=== PATIENT | male | born 1970 | race Caucasian/White ===

== ENCOUNTER 2020-03-14 11:39 | Inpatient (IN) | payer OTHER, SELFPAY ==
[2020-03-14 11:51] VITALS: BP 127/62; PULSE 81; RESP 16; TEMP 36.6; O2SAT 98; BMI 22.3
--- NOTE | 2020-03-14 14:07 | PCM.NTREPORT ---
Nutrition Therapy Report - History Nutrition Services has been consulted to:: Manage enteral nutrition Current diet / nutrition support order:: NPO - Anthropometric Measurements Height:: 5 ft 9 in Weight:: 68.492 kg Body Mass Index (BMI):: 22.3 - Assessment Food / Nutrition-Related History:: Records from [facility] reviewed. Respiratory failure requiring tracheostomy s/p intracranial bleed. PEG placed 12/31/19. Per records, pt has been tolerating Jevity 1.5 at 65mL/hour w/ 200mL H2O flush every 4 hours. This provides 2340 calories, 99.5 g protein, 2385 mL total fluid/day. No wt hx available. CBW from [facility]- 151#. - Nutrition Diagnosis Problem / Etiology / Signs & Symptoms (PES):: Chewing/swallowing difficulty r/t tracheostomy status, dysphagia as evidenced by need for enteral nutrition support via PEG. Evidence of Malnutrition Exists:: No - Nutrition Intervention Nutrition Prescription:: [id number] calories, 82-92 g protein/day - Food / Nutrient Delivery Interventions Summary of nutrition intervention:: Asked to switch continuous feeds to bolus feeds. See below. Nutrition support ordered as / adjusted to:: For bolus feeds: Jevity 1.5, 300mL bolus 5x/day. Continue 200mL flush 6x day (w/ each bolus + 1 additional flush). As ordered, will provide 2250 calories, 95.7 g protein, and 2340mL total fluid/day. Would start w/ 150mL bolus and increase by 50mL each bolus as tolerated until 300mL boluses are achieved. - MNT Monitoring Further MNT monitoring and evaluation required?: Yes MNT Follow-up in:: 3-5 days
[2020-03-14 14:12] VITALS: BMI 22.3
[2020-03-14] MEDS: Glycerin/Hypromellose/PEG400 15 ml Bottle 1 DRP LEFT EYE ×2 (14:17→17:11)
[2020-03-14 14:30] VITALS: O2SAT 99
[2020-03-14] MEDS: Jevity 1.5. 1,000 ML Bottle 300 ML GT ×2 (17:10→22:33)
[2020-03-14 18:40] VITALS: O2SAT 94
[2020-03-14 22:00] VITALS: BP 105/67; PULSE 62; RESP 18; TEMP 36.6; O2SAT 94; O2SAT 97
[2020-03-14] MEDS: cloNIDine HCl 0.1 MG Tablet 0.2 MG GT (22:32)
[2020-03-14] MEDS: levETIRAcetam Oral Solution 500 MG/5 ML GT (22:33)
[2020-03-15] MEDS: Enoxaparin 30 MG/0.3 ML Syringe SC (05:45)
[2020-03-15] MEDS: Glycerin/Hypromellose/PEG400 15 ml Bottle 1 DRP LEFT EYE ×5 (05:45→21:57)
[2020-03-15 06:05] VITALS: O2SAT 90
[2020-03-15 06:51] LABS: Absolute Lymphocyte Count 1.27 X10^3/uL (0.83-4.51); Absolute Neutrophil Count 6.3 X10^3/uL (2.0-7.7); Basophil# 0.03 X10^3/uL; Basophil% 0.4 % (0-1); Eosinophil# 0.11 X10^3/uL; Eosinophils% 1.3 % (0-5); Hemoglobin 13.6 g/dL (13.0-16.5); Lymphocyte # 1.27 X10^3/ul (4.0); Lymphocyte % 15.3 % (19-41); Mean Corp Hgb Conc 33.2 g/dL (32-36); Mean Corpuscular Hgb 29.2 pg (27.0-32.0); Mean Platelet Vol. 9.8 fl (6.2-12.0); Monocyte# 0.58 X10^3/uL; NRBC Flagged by Analyzer 0 % (0-5); Neutrophil # 6.28 X10^3/uL (2.7-7.7); Neutrophil % 75.8 % (47-70); Platelet Count 216 K/mm3 (150-450); RBC Distribution Width CV 14.1 % (11.6-14.6); RBC Distribution Width SD 45.1 fl (35.1-43.9); Red Blood Count 4.66 M/mm3 (4.6-6.2); White Blood Count 8.3 K/mm3 (4.4-11.0)
[2020-03-15 07:22] LABS: ALB/GLOB Ratio 0.8 RATIO (0.9-2.4); AST(SGOT) 18 U/L (15-37); Alanine Aminotransfer ALT/SGPT 38 U/L (16-61); Albumin, Serum 3.1 g/dL (3.2-5.0); Alkaline Phosphatase 107 U/L (45-117); Anion Gap 6 (5-15); BUN 19 mg/dL (7-18); BUN/Creat Ratio 27.9 RATIO (10-20); Calcium,Total 8.9 mg/dL (8.5-10.1); Chloride 104 mmol/L (98-107); Creatinine, Serum 0.68 mg/dL (0.70-1.30); EST Glomerular Filtration Rate 130 mL/min (>60); Est Glom Filt Rate - Afr Amer 157 mL/min (>60); Estimated Creatinine Clearance 124.51 ml/min; Globulin 3.8 g/dL (2.2-4.2); Glucose 83 mg/dL (74-106); Magnesium 2.1 mg/dL (1.6-2.6); Phosphorus 4.1 mg/dL (2.5-4.9); Potassium 3.8 mmol/L (3.5-5.1); Protein, Total 6.9 g/dL (6.4-8.2); Sodium Level 138 mmol/L (136-145)
[2020-03-15] MEDS: Jevity 1.5. 1,000 ML Bottle 300 ML GT ×5 (07:36→21:55)
--- NOTE | 2020-03-15 08:52 | HP.PCM_ITS ---
Problem List (1) TBI (traumatic brain injury) Status: Acute Qualifiers: Encounter type: subsequent encounter Loss of consciousness presence/duration: with LOC of unspecified duration Qualified Code(s): S06.9X9D - Unspecified intracranial injury with loss of consciousness of unspecified duration, subsequent encounter Comment: Occurred on 12/31/2019. He had a witnessed fall while intoxicated and struck the back of the head. He had LOC. He was taken to [facility] with declining mental status and CTH showed subdural hematoma/subarachnoid hemorrhage/midline shift/cerebral edema. He was taken to surgery for a left craniectomy with evacuation of the subdural hematoma. (2) Hx of tracheostomy Status: Chronic Comment: 01/04/2020 (3) S/P percutaneous endoscopic gastrostomy (PEG) tube placement Status: Chronic Comment: 01/04/2020 (4) History of intracranial hemorrhage Status: Acute Comment: 12/31/19 due to a fall while intoxicated. Subarachnoid hemorrhage/subdural hematoma/left temporal intraparenchymal hemorrhage. 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 The patient is a 49 year old M with a hx of chronic ETOH use disorder and chronic back pain (per his ) who had a witnessed fall on 12/31/19 while intoxicated striking the back of his head and losing consciousness. He was taken to an [facility] where a CTB showed SAH/SDH/Left intraparenchymal cerebral hemorrhage with midline shift. He underwent a craniectomy to evacuate the SDH. On 01/04/20 he had a PEG and tracheostomy. He required high doses of multiple sedatives to control behavior. Eventually he was transferred to an LTAC ([facility]). He was weaned off all sedatives. According to recent notes from [facility] he is alert but follows no commands. He is tolerating a PMSV for only 12 minutes. He is tolerating continuous TF without residuals. He was transferred to [facility] acute rehab on 03/14/20 for 3 hours of therapy daily to restore him as near as possible to his previous baseline. He was following no commands at [facility] prior to being discharged to [facility]. He is maintaining appropriate oxygen saturation on a 21% FiO2. SARS-CoV-2 rapid antigen was negative on 03/13/2020. On 03/12/2020 he tolerated 12 minutes with a [place] valve. All paperwork sent to us from [facility] was reviewed. [facility] spoke with the and told her that Scot drinks heavily and mostly at a bar. He generally calls one of the kids to come get him from the bar or he walks home. He has apparently applied for disability 2 times for chronic back pain and has been denied. He has 2 scars on either side of the LS spine from surgery in the past. He has had multiple fractures and back surgery in the past? I will need to speak with his personally when she is available. 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 All lab from today was personally reviewed. The CBC is unremarkable. CMP shows normal LFTs, normal phosphorus, normal magnesium, normal sodium and potassium. BUN is elevated at 19 and the creatinine is 0.68. 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 Psychiatric History: - - unknown....will need to speak with his . Lives: Spouse/ Significant Other Smoking Status: Never smoker Tobacco Use: Non-smoker Alcohol: Heavy Drugs: - - unknown - *Family History Maternal History Items: - - unknown.......pt is unable to give me hx due to severe TBI. Will discuss with his . Review of Systems Unable to obtain accurate/complete ROS d/t: severe TBI and he is not able to answer my questions at this time. VTE Information - Inpt Only VTE Present on Admission: No VTE Mechan Device Prophylaxis: Knee High ARIANNA Hose VTE Pharm Prophylaxis ordered?: Yes Patient Problems: Active and Suspected Problems TBI (traumatic brain injury) (Acute) Occurred on 12/31/2019. He had a witnessed fall while intoxicated and struck the back of the head. He had LOC. He was taken to [facility] with declining mental status and CTH showed subdural hematoma/subarachnoid hemorrhage/midline shift/cerebral edema. He was taken to surgery for a left craniectomy with evacuation of the subdural hematoma. History of intracranial hemorrhage (Acute) 12/31/19 due to a fall while intoxicated. Subarachnoid hemorrhage/subdural hematoma/left temporal intraparenchymal hemorrhage. History of craniotomy (Acute) 12/31/19 Cognitive dysfunction, acquired (Acute) due to TBI sustained in a fall while intoxicated with intracerebral bleeding requiring craniectomy Dysphagia (Acute) PEG was placed Encephalopathy acute (Acute) due to TBI Subdural hematoma (Acute) Subarachnoid hemorrhage (Acute) - Physical Exam Vitals/I&O's: Vital Signs Temp Pulse Resp BP Pulse Ox 97.8 F 62 18 105/67 90 03/14/20 22:00 03/14/20 22:00 03/14/20 22:00 03/14/20 22:00 03/15/20 06:05 Oxygen Delivery Method Trach Collar Weight: 150 lb 15.984 oz Body Mass Index (BMI) 22.3 Intake and Output for Last 24 Hours 03/13/20 03/14/20 03/15/20 23:59 23:59 23:59 Intake Total 750 / 750 Output Total 500 / 500 Balance 250 / 250 General: Alert, - - He was able to squeeze my hand with his left hand when I commanded him to. I asked him to squeeze my hand if he had back pain and he squeezed my hand. He squeezed again when I asked about leg pain. When I asked if he was short of breath he did not squeeze my hand. He was able to smile at me when HEENT: - - The left eye is blind and opaque. He will look at me with the right and will follow me around with the R eye. Piece of bone Left skull not yet replaced and he wears a helmet. Oral: - - he will not open his mouth. He is having some small amount of drooling. Neck: No JVD, No Nodes, Trachea Midline, - - weak neck muscles and when you extend the neck he winces. The trapezius muscles are very tight BL The nscalp has flakey seborrheic dermatitis Lungs: Clear to auscultation, No rhonchi, No wheeze, No rales, Diminished - in the bases. Cardiovascular: Regular rate, Regular Rhythm, Normal S1, Normal S2, No murmurs, No rub noted, No Gallop Abdomen: Bowel Sounds Present, Soft, Non-Distended, - - no guarding with palpation. Extremities: No clubbing, No cyanosis, No edema, Peripheral Pulses Normal, - - There is marked muscle atrophy of the RUE and the RLE. Skin: No rashes, Incision - he has an old healed incision beneath the R eyebrow.......may be from when he has shingles as a child, - - the scalp incision is intact with no purulent DC and no significant an-incisional eryt jamshid. There is a pad over the sacruum.....will have nursing help me to remove and examine the area. The documantation by nursing sounds like a stage 1 decub. He has 2 old scars on either side of the Lumbar spin Musculoskeletal: Muscle Wasting - RUE and RLE He is R sided.......he indicated this to us when asked by shrugging the R shoulder., Tenderness - of the BL trapezius muscles. Neurological: - - Motor strength on the R is 3/5 for the leg and 1/5 for the RUE. R eye is chronically blind. He makes eye contact and he smiles. Psych/Mental Status: Flat Affect Laboratory Results 03/15/20 06:30: WBC 8.3, RBC 4.66, Hgb 13.6, Hct 41.0, MCV 88.0, MCH 29.2, MCHC 33.2, RDW Std Deviation 45.1 H, RDW Coeff of Neha 14.1, Plt Count 216, MPV 9.8, Immature Gran % (Auto) 0.200, Neut % (Auto) 75.8 H, Lymph % (Auto) 15.3 L, Rusk % (Auto) 7.0, Eos % (Auto) 1.3, Baso % (Auto) 0.4, Absolute Neuts (auto) 6.3, Absolute Lymphs (auto) 1.27, Nucleated RBC % 0 03/15/20 06:30: Sodium 138, Potassium 3.8, Chloride 104, Carbon Dioxide 28.0, Anion Gap 6, BUN 19 H, Creatinine 0.68 L, Estim Creat Clear Calc 124.51, Est GFR (MDRD) Af Amer 157, Est GFR (MDRD) Non-Af 130, BUN/Creatinine Ratio 27.9 H, Glucose 83, Calcium 8.9, Phosphorus 4.1, Magnesium 2.1, Total Bilirubin 0.60, AST 18, ALT 38, Alkaline Phosphatase 107, Total Protein 6.9, Albumin 3.1 L, Globulin 3.8, Albumin/Globulin Ratio 0.8 L Current Medications Acetaminophen (Acetaminophen 650 Mg/20 Ml Udc) 650 mg GT Q6H PRN PRN PRN Reason: Pain 1-10 or Fever Bisacodyl (Bisacodyl 10 Mg Suppository) 10 mg RECTAL .PRN X 1 PRN PRN Reason: Constipation Clonidine (Clonidine Hcl 0.1 Mg Tablet) 0.2 mg GT BID [facility] Last Admin: 03/14/20 22:32 Dose: 0.2 mg Documented by: Enoxaparin Sodium (Enoxaparin 30 Mg/0.3 Ml Syringe) 30 mg SC DAILY@0600 [facility] Last Admin: 03/15/20 05:45 Dose: 30 mg Documented by: Enteral Nutritional Formula (Jevity 1.5. 1,000 Ml Bottle) 300 ml GT 5X/DAY [facility] Last Admin: 03/15/20 07:36 Dose: 200 ml Documented by: Levetiracetam (Levetiracetam Oral Solution 500 Mg/5 Ml) 500 mg GT BID [facility] Last Admin: 03/14/20 22:33 Dose: 500 mg Documented by: Magnesium Hydroxide (Magnesium Hydroxide 30 Ml Udc) 30 ml PO .PRN X 1 PRN PRN Reason: Constipation Polyethylene Glycol (Polyethylene Glycol 3350 17 Gm Packet) 17 gm PO DAILY [facility] Promethazine HCl (Promethazine 25 Mg Tablet) 12.5 mg PO Q6H PRN PRN PRN Reason: NAUSEA/VOMITING Assessment/Plan All Active Problems TBI (traumatic brain injury) (Acute) History of intracranial hemorrhage (Acute) History of craniotomy (Acute) Cognitive dysfunction, acquired (Acute) Dysphagia (Acute) Encephalopathy acute (Acute) Subdural hematoma (Acute) Subarachnoid hemorrhage (Acute) Impressions 1. Severe debility due to severe traumatic brain injury which resulted from a witnessed fall while intoxicated on 12/31/2019 resulting in a subdural hematoma, subarachnoid hemorrhage and L intraparenchymal intracerebral hemorrhage with midline shift and declining mental function requiring craniectomy to evacuate the SDH. 2. Chronic alcohol use disorder.....possibly to control chronic pain per the 3. Severe dysphagia requiring PEG tube placement 4. Prolonged extubation requiring tracheostomy 5. Chronic back pain for which he has applied for disability twice and been denied. 6. severe encephalopathy due to TBI 7. HTN - on Clonidine 8. I found no documentation of seizures but.......he is on Keppra PLAN PT for gait stability OT for ADL's ST for evaluation Analgesics as needed - Acetaminophen only for now Bowel protocol Fall precautions Assess for Anxiety/Depression GI prophylaxis not indicated at this time...no hx of PUD and the HGB is normal DVT prophylaxis with enoxaparin Follow up with neurosurgery, neurology, PCP following DC from [facility] Consult the dietitian to convert to bolus tube feeds and to assess his nutritional status. soft cervical collar to hold the head up until he gets enough strength to hold it up by himself. Massage and a K pad to the neck/traps after therapy sessions Arthritis cream to the posterior neck and the traps TID Tylenol susp 1,000 mg TID per the PEG. Obtain old records from his PCP I will contact the to discuss his hx and answer any questions she may have. Will enquire whether he has ever been treated for anxiety or depression. What type of employment does he have. Why does he have chronic back pain and what type of back surgery has he had in the past and where. Any hx of other addictions besides ETOH? Inpatient E&M: [id number] Init Hosp L3
--- NOTE | 2020-03-15 08:52 | PCM.RU.PYE ---
Admission Information Status Changes from Prescreening?: No changes Identified Actual Problem List:: Skin Intergrity, Pain, ALteration in Cmfrt, Cognitve Impr/Memory Loss, Depression, Bladder Incontinence, Bowel, Incontinence, Mobility Impaired, Self Care Deficit, Ineffective Communication, BP, Hypertension, Alteration/ Air Exchange, Alteration-Leisure Activ. Potential Problem List:: DVT, Bleeding, Infection, UTI, Aspiration, Falls, Skin Integrity, Depression Risk of Complications DVT: LMWH, ARIANNA Hose Bleeding: Monitor Lab Values, Nursing to Teach Precautions for anti-coagulation therapy., Wound, if applicable, to be assessed every shift., Stroke patients assessed for lethargy or change in status. Infection: Clinical Staff to Monitor for S/S of infection:, S/S of infection include fever, redness, warmth, etc. Urinary Tract Infection: Monitor for frequency, burning, discomfort, or incontinence., Nursing will obtain urine sample for urinalysis and C&S when ordered. Aspiration: Clinical staff will monitor for coughing, drooling, congestion., Speech will evaluate swallowing and dsyphasia., Nursing will monitor patient swallowing during meals. Falls: Patient will be evaluated for Fall Precautions, Patient will be placed on Fall Precautions as indicated per protocol. Skin Breakdown: Nursing will assess skin daily using assessment tool., Nursing will place on Skin Breakdown Precautions as indicated. Pain: Clinical staff will assess patient's pain level per protocol., Medications will be given, if needed, and the pain level reassessed., Other methods: Massage, distraction, decrease stimulus, etc. used PRN. Plan of Care Patient requires physician specializing in physical medicine and rehab oversight to provide close medical supervision of rehab issues including: Pain Management, Sleep Problems, Bowel and Bladder, Medical and co-morbidity Management, DVT prophylaxis, Rehabilitation Leadership, Coordination of treatment team Patient needs Physical Therapy: For a minimum of 1 hour, At least 5 out of 7 days Patient needs Physical Therapy to improve:: Mobility, Mobility, Mobility, Strengthening, Transfers, Stretching, ROM, Endurance, Stairs, Gait, Balance Patient needs Occupational Therapy: For a minimum of 1 hour, At least 5 out of 7 days Patient needs Occupational Therapy to improve ADL's incl.: Eating, Grooming, Bathing, Dressing, Toileting, Toilet transfers, Community Reintegration, Higher functioning activities, Household tasks, Adaptive Equipment, Splinting, Other activities as determined Patient requires speech therapy: For a minimum of 1 hour, At least 5 out of 7 days Patient requires speech therapy for: Swallowing, Cognition, Language Skills, Compensatory Strategies Patient requires 24 Rehabilitation Nursing for: Pain Issues, Identifying and preventing risk factors, Monitoring and reporting current medical conditions, Assisting with ambulation, transfer, and all ADL's, Teaching patients about disease process and medications, Family teaching, Providing safe environment, Bowel and Bladder Issues, Skin integrity, Medication Management Patient needs Supervisor Chemical/ Case Management for: Discharge Planning, Arranging Home Equipment or Services, Family Interventions Patient needs Dietary and Nutrition Services for: Adequate Nutrition, Nutritional Supplements, Nutritional Education Goals Patient will remain: free from falls, or injury at time of discharge. Patient will perform bed mobility at: MOD I level of assist. Patient will complete transfers from bed to chair at: MOD I level of assist. Patient will ambulate: with standby assist, with LRD, - - 150 feet Patient will complete upper body dressing at: MOD I level of assist. Patient will complete lower body dressing at: MOD I level of assist. Patient will complete toileting at: MOD I level of assist. Patient will perform bathing at: MOD I level of assist. Patient will complete grooming at: MOD I level of assist. Patient will complete home management skills at: MOD I level of assist. Patient will achieve: - - 3 steps with 1 handrail and min assist Patient will have pain level of: of 3 or less Patient's skin will: remain intact, free from infection. Patient will receive: adequate nutrition. Discharge Planning Pt Prognosis for Sig. Practical Improv. w/in Reasonable Time: Fair Estimated Length of stay (days): 28 Anticipated D/C Destination: TBD Was Preadmission Assessment Accurate?: No
[2020-03-15 09:01] VITALS: BP 115/68; PULSE 73; RESP 16; TEMP 36.6; O2SAT 96
[2020-03-15] MEDS: cloNIDine HCl 0.1 MG Tablet 0.2 MG GT ×2 (09:53→21:55)
[2020-03-15] MEDS: levETIRAcetam Oral Solution 500 MG/5 ML GT ×2 (09:54→21:56)
[2020-03-15] MEDS: Acetaminophen 650 MG/20 ML UDC 1000 MG GT ×2 (15:00→21:56)
[2020-03-15 21:55] VITALS: BP 114/71; PULSE 73; RESP 18; TEMP 36.6; O2SAT 97
[2020-03-15] MEDS: Arthritis Pain Compound 60 CLICK TUBE TOPICAL (21:55)
[2020-03-15] MEDS: Menthol/Lanolin/Calamine/Znox 113 GM Tube 1 APPLIC TOPICAL (21:55)
[2020-03-15] MEDS: Nystatin Powder 15gm Bottle 1 APPLIC TOPICAL (21:56)
--- NOTE | 2020-03-15 22:39 | NURSING ---
pt suction thru trach with thick yellow and foul smelling
[2020-03-16] MEDS: Jevity 1.5. 1,000 ML Bottle 300 ML GT ×5 (04:42→23:49)
[2020-03-16] MEDS: Arthritis Pain Compound 60 CLICK TUBE TOPICAL ×3 (04:43→23:44)
[2020-03-16] MEDS: Enoxaparin 30 MG/0.3 ML Syringe SC (04:43)
[2020-03-16] MEDS: Glycerin/Hypromellose/PEG400 15 ml Bottle 1 DRP LEFT EYE ×4 (04:43→23:50)
[2020-03-16] MEDS: Acetaminophen 650 MG/20 ML UDC 1000 MG GT ×3 (04:44→23:45)
[2020-03-16] MEDS: cloNIDine HCl 0.1 MG Tablet 0.2 MG GT ×2 (08:29→23:44)
[2020-03-16] MEDS: levETIRAcetam Oral Solution 500 MG/5 ML GT ×2 (08:29→23:44)
[2020-03-16] MEDS: Nystatin Powder 15gm Bottle 1 APPLIC TOPICAL ×2 (08:30→23:43)
[2020-03-16] MEDS: Menthol/Lanolin/Calamine/Znox 113 GM Tube 1 APPLIC TOPICAL ×2 (08:39→23:44)
[2020-03-16 09:18] VITALS: BP 111/72; PULSE 76; RESP 19; TEMP 36.8; O2SAT 92
--- NOTE | 2020-03-16 09:52 | PN_ITS ---
Progress Note Afebrile Heart rate and blood pressure are within normal limits. Pulse ox is 92% on an FiO2 of 28% today. Nursing reports that he has thick secr etions from the trach with a foul odor. The RT noted last night that the trach secretions were a creamy yellow and there was a large amount. Lungs were CTA yesterday but, there were diminished BS's in the bases. He is incontinent of urine Less responsive today. I saw him in the therapy room and OT is working with him to stretch neck and work out the trapezius muscles. He is less interactive today. He has his eyes closed. Appears relaxed. He is able to help maintain posture when sitting up the L eye is reactive to light Will not open his mouth, not following commands today The lungs have a few coarse rhonchi with no crackles and no wheezes HRRR, no gallop and no MM abd - soft, NT, normal BS's no peripheral edema no rashes and no skin breakdown. Impressions 1. debility due to severe TBI 2. possible PNA with fould smelling secretions from trach 3. hx of Alcohol use disorder 4. suspected depression sputum culture and GM stain Check an MRSA PCR on the sputum pCXR now STROKE Vital Signs/Narrative: Vital Signs Temp Pulse Resp BP Pulse Ox 03/16/20 09:18 98.3 F 76 19 H 111/72 92 Inpatient E&M: [id number] Subs Hosp L2
[2020-03-16 10:00] VITALS: PULSE 76; RESP 18; O2SAT 92
--- NOTE | 2020-03-16 14:00 | RAD_ITS ---
STUDY: X-RAY CHEST REASON FOR EXAM: Male, 49 years old. Hypoxemia TECHNIQUE: Frontal view COMPARISON: None. FINDINGS: Tracheostomy tube is in place. The lungs are not fully expanded. Mild left basilar atelectasis. Normal size heart. Normal mediastinum and nohemy. Normal visualized pulmonary arteries. Normal visualized aortic arch and descending thoracic aorta. Normal visualized thoracic spine. There is a round well-defined lucent 1 cm lesion in the proximal humerus. There is no demonstrated abnormality of the visualized soft tissue structures of the upper abdomen. RAD/Chest 1 View (Portable) IMPRESSION: Mild left basilar atelectasis. Possible lucent lesion within the proximal humerus. Electronically Signed: Antoine Mullins DO at 16:54 EST Tel [phone], Service support ,
[2020-03-16 17:23] VITALS: O2SAT 92
[2020-03-16 19:00] VITALS: O2SAT 91
[2020-03-16 19:28] VITALS: BP 105/65; PULSE 70; RESP 16; TEMP 37; O2SAT 96
[2020-03-17] MEDS: Acetaminophen 650 MG/20 ML UDC 1000 MG GT ×3 (05:29→22:56)
[2020-03-17] MEDS: Enoxaparin 30 MG/0.3 ML Syringe SC (05:30)
[2020-03-17] MEDS: Jevity 1.5. 1,000 ML Bottle 300 ML GT ×5 (05:30→22:51)
[2020-03-17] MEDS: Glycerin/Hypromellose/PEG400 15 ml Bottle 1 DRP LEFT EYE ×4 (05:31→23:07)
[2020-03-17] MEDS: Arthritis Pain Compound 60 CLICK TUBE TOPICAL ×3 (05:31→22:48)
[2020-03-17 08:44] VITALS: BP 100/55; PULSE 66; RESP 16; TEMP 37; O2SAT 98
[2020-03-17] MEDS: cloNIDine HCl 0.1 MG Tablet 0.2 MG GT ×2 (11:23→22:45)
[2020-03-17] MEDS: levETIRAcetam Oral Solution 500 MG/5 ML GT ×2 (11:23→22:41)
[2020-03-17] MEDS: Menthol/Lanolin/Calamine/Znox 113 GM Tube 1 APPLIC TOPICAL ×2 (11:38→22:45)
[2020-03-17] MEDS: Nystatin Powder 15gm Bottle 1 APPLIC TOPICAL ×2 (11:38→23:07)
--- NOTE | 2020-03-17 14:00 | NURSING ---
given update on patient's condition.
[2020-03-17 19:46] VITALS: BP 113/61; PULSE 61; RESP 16; TEMP 37.1; O2SAT 98
[2020-03-17 22:00] VITALS: PULSE 66; RESP 16
[2020-03-18] MEDS: Arthritis Pain Compound 60 CLICK TUBE TOPICAL ×3 (06:22→22:32)
[2020-03-18] MEDS: Glycerin/Hypromellose/PEG400 15 ml Bottle 1 DRP LEFT EYE ×3 (06:22→18:41)
[2020-03-18] MEDS: Enoxaparin 30 MG/0.3 ML Syringe SC (06:29)
[2020-03-18] MEDS: Jevity 1.5. 1,000 ML Bottle 300 ML GT ×5 (06:30→22:38)
[2020-03-18] MEDS: Acetaminophen 650 MG/20 ML UDC 1000 MG GT ×3 (06:33→22:33)
[2020-03-18 10:00] VITALS: BP 117/65; PULSE 68; RESP 18; TEMP 37.2; O2SAT 98
[2020-03-18] MEDS: cloNIDine HCl 0.1 MG Tablet 0.2 MG GT ×2 (11:09→22:38)
[2020-03-18] MEDS: levETIRAcetam Oral Solution 500 MG/5 ML GT ×2 (11:09→22:37)
[2020-03-18] MEDS: Menthol/Lanolin/Calamine/Znox 113 GM Tube 1 APPLIC TOPICAL ×2 (11:10→22:38)
[2020-03-18] MEDS: Nystatin Powder 15gm Bottle 1 APPLIC TOPICAL ×2 (11:11→22:37)
--- NOTE | 2020-03-18 17:40 | NURSING ---
Patient continues to be alert x0. When name is spoke, no response and eyes remain closed. Total assist by staff. Not able to follow commands. Mouth care provided and trach care provided per nursing. Turned and repositioned per staff.
[2020-03-18] MEDS: Amox/Clav 400mg/5ml Susp 875 MG GT (18:40)
[2020-03-18 19:37] VITALS: BP 102/58; PULSE 78; RESP 16; TEMP 36.8; O2SAT 92
[2020-03-18 22:00] VITALS: PULSE 78; RESP 16
[2020-03-19] MEDS: Glycerin/Hypromellose/PEG400 15 ml Bottle 1 DRP LEFT EYE ×4 (01:31→17:17)
[2020-03-19] MEDS: Arthritis Pain Compound 60 CLICK TUBE TOPICAL ×3 (06:19→21:20)
[2020-03-19] MEDS: Jevity 1.5. 1,000 ML Bottle 300 ML GT ×5 (06:22→23:13)
[2020-03-19] MEDS: Enoxaparin 30 MG/0.3 ML Syringe SC (06:22)
[2020-03-19] MEDS: Acetaminophen 650 MG/20 ML UDC 1000 MG GT ×3 (06:41→21:22)
[2020-03-19 09:26] VITALS: BP 101/70; PULSE 60; RESP 18; TEMP 36.9; O2SAT 96
[2020-03-19] MEDS: Amox/Clav 400mg/5ml Susp 875 MG GT ×2 (09:55→17:17)
[2020-03-19] MEDS: Menthol/Lanolin/Calamine/Znox 113 GM Tube 1 APPLIC TOPICAL ×2 (09:56→21:25)
[2020-03-19] MEDS: cloNIDine HCl 0.1 MG Tablet 0.2 MG GT ×2 (09:56→21:21)
[2020-03-19] MEDS: Nystatin Powder 15gm Bottle 1 APPLIC TOPICAL ×2 (09:57→21:25)
[2020-03-19] MEDS: levETIRAcetam Oral Solution 500 MG/5 ML GT ×2 (09:58→21:21)
--- NOTE | 2020-03-19 10:34 | CASEMGMT ---
Social Work IDT met with patient - working but will call for update after work. Patient asleep during Team. Discussed patient's progressed in therapy. Pt is standing 2 mins modx2, modx2 for tx, on Nustep while therapist holding right leg on machine, pt unable to use right arm but pushing left side on his own. Pt sat on EOM for 25 mins CGA-min for postural control, total for ADLs. Pt did try to bridge for dressing and thread leg into pants. ST working on oral care, initiating swallows and passing mirror valve. For all disciplines, pt not opening eyes often. Pt does not appear in any pain, sleeping well. will start pt on antidepressant and is treating infection in sputum in trache, which may also be causing decrease in alertness. Explained MMO CM insurance with [employer] 03/20 and continued stay is not guaranteed. Pt's TBI was extensive and will require time to heal and see significant progress. Will ReTeam and continue to follow. Vivien Manzano, [employer]
--- NOTE | 2020-03-19 12:24 | PN_ITS ---
Patient Problems: Active and Suspected Problems TBI (traumatic brain injury) (Acute) Occurred on 12/31/2019. He had a witnessed fall while intoxicated and struck the back of the head. He had LOC. He was taken to [facility] with declining mental status and CTH showed subdural hematoma/subarachnoid hemorrhage/midline shift/cerebral edema. He was taken to surgery for a left craniectomy with evacuation of the subdural hematoma. History of intracranial hemorrhage (Acute) 12/31/19 due to a fall while intoxicated. Subarachnoid hemorrhage/subdural hematoma/left temporal intraparenchymal hemorrhage. History of craniotomy (Acute) 12/31/19 Cognitive dysfunction, acquired (Acute) due to TBI sustained in a fall while intoxicated with intracerebral bleeding requiring craniectomy Dysphagia (Acute) PEG was placed Encephalopathy acute (Acute) due to TBI Subdural hematoma (Acute) Subarachnoid hemorrhage (Acute) Subjective: Day #2 Augmentin. Loyd was seen on team rounds today. No one was available to participate by phone but the vp digital marketing social media and crm will update his later today when she is done with work. Afebrile VSS -blood pressure is still within normal limits but a little on the low side when compared to admission for the past 2 days. Maintaining appropriate oxygen saturation on a 28% FiO2 with oxygen per trach collar. He was actually 96% on room air today when checked as well. Remains n.p.o. and receives all his feedings/fluids via PEG tube. Discussed with nursing - He is not responding to nursing at all and not following any commands. He does not even open his eyes when they are speaking to him.......He has declined in participation with therapy since admission and I suspect this is due to infection. Reviewed the PT/OT/ST notes Medication list reviewed. cxr was reviewed. There is blunting of the L costophrenic angle. there appears to me as though there may be a small infiltrate in the RUL. the right hemidiaphragm is elevated. The sputum Gram stain from 03/16/2020 showed 4+ white blood cells and grew 3+ MRSA and 3+ group F strep. The MRSA is resistant to clindamycin. It is sensitive to linezolid, vancomycin and Bactrim. - Physical Exam Vitals/I&O's: Vital Signs Temp Pulse Resp BP Pulse Ox 98.4 F 60 18 101/70 96 03/19/20 09:26 03/19/20 09:26 03/19/20 09:26 03/19/20 09:26 03/19/20 09:26 Oxygen Flow Rate (L/min) 6 Oxygen Delivery Method Trach Collar Weight: 150 lb 15.984 oz Body Mass Index (BMI) 22.3 Intake and Output for Last 24 Hours 03/17/20 03/18/20 03/19/20 23:59 23:59 23:59 Intake Total 4000 / 4000 3500 / 3500 500 / 500 Balance 4000 / 4000 3500 / 3500 500 / 500 General: - - He is lying in bed and does not respond to calling his name. He would not open his eyes. When I opened his eye he did not make eye contact with me HEENT: - - The Left pupil is round and reactive to light. the incision in the Left cranium is intact and there is not an-incisional erythema and no purulent DC Oral: - - I was unable to get his mouth open. Neck: No Nuchal Rigidity, Trachea Midline Lungs: Rhonchi - diffuse anteriorly and he had just been suctioned.......he has copious amounts of creamy yellow sputum and the rhonchi may be due to transmitted sounds Cardiovascular: Regular rate, Regular Rhythm, Normal S1, Normal S2, No murmurs, No rub noted, No Gallop, - - PMI is displaced inferior and medial Abdomen: Bowel Sounds Present, Soft, Non Tender, Non-Distended, - - no purulent DC from around the PEG site Extremities: No cyanosis, No edema Skin: No rashes, No breakdown, - - He has the space boots on and a dressing over the sacrum.coccyx for protection only Musculoskeletal: Muscle Wasting - R side of the body, Leg and arm Neurological: - - not able to participate in exam today. Microbiology Past 72 Hours 03/16/20 14:00 Sputum, Tracheal Aspirate Gram Stain - Final 03/16/20 14:00 Sputum, Tracheal Aspirate Respiratory Culture - Final Meth. resistant Staph. aureus Streptococcus group F Current Medications Acetaminophen (Acetaminophen 650 Mg/20 Ml Udc) 1,000 mg GT Q8 [facility]I Last Admin: 03/19/20 06:41 Dose: 1,000 mg Documented by: Amoxicillin/Clavulanate Potassium (Amox/Clav 400mg/5ml Susp) 875 mg GT BIDCM [facility] Last Admin: 03/19/20 09:55 Dose: 875 mg Documented by: Bisacodyl (Bisacodyl 10 Mg Suppository) 10 mg RECTAL .PRN X 1 PRN PRN Reason: Constipation Calamine/Phenol (Menthol/Lanolin/Calamine/Znox 113 Gm Tube) 1 applic TOPICAL BID [facility]; Protocol Last Admin: 03/19/20 09:56 Dose: 1 applicatio Documented by: Clonidine (Clonidine Hcl 0.1 Mg Tablet) 0.2 mg GT BID [facility] Last Admin: 03/19/20 09:56 Dose: 0.2 mg Documented by: Compound Med (Arthritis Pain Compound 60 Click Tube) 3 click TOPICAL TID [facility]; Protocol Last Admin: 03/19/20 06:19 Dose: 3 click Documented by: Enoxaparin Sodium (Enoxaparin 30 Mg/0.3 Ml Syringe) 30 mg SC DAILY@0600 [facility] Last Admin: 03/19/20 06:22 Dose: 30 mg Documented by: Enteral Nutritional Formula (Jevity 1.5. 1,000 Ml Bottle) 300 ml GT 5X/DAY [facility] Last Admin: 03/19/20 09:56 Dose: 300 ml Documented by: Levetiracetam (Levetiracetam Oral Solution 500 Mg/5 Ml) 500 mg GT BID [facility] Last Admin: 03/19/20 09:58 Dose: 500 mg Documented by: Magnesium Hydroxide (Magnesium Hydroxide 30 Ml Udc) 30 ml PO .PRN X 1 PRN PRN Reason: Constipation Multi-Ingredient Cream (Mineral Oil/Petrolatum,White Jar) 1 applic TOPICAL BID PRN PRN; Protocol PRN Reason: DRY SKIN Nystatin (Nystatin Powder 15gm Bottle) 1 applic TOPICAL BID [facility]; Protocol Last Admin: 03/19/20 09:57 Dose: 1 applicatio Documented by: Polyethylene Glycol (Polyethylene Glycol 3350 17 Gm Packet) 17 gm PO DAILY [facility] Last Admin: 03/19/20 09:57 Dose: Not Given Documented by: Promethazine HCl (Promethazine 25 Mg Tablet) 12.5 mg PO Q6H PRN PRN PRN Reason: NAUSEA/VOMITING Medical Necessity - Tobacco Use Smoking Status: Never smoker Tobacco Use: Non-smoker Assessment/Plan All Active Problems TBI (traumatic brain injury) (Acute) History of intracranial hemorrhage (Acute) History of craniotomy (Acute) Cognitive dysfunction, acquired (Acute) Dysphagia (Acute) Encephalopathy acute (Acute) Subdural hematoma (Acute) Subarachnoid hemorrhage (Acute) Impressions 1. Severe debility due to severe traumatic brain injury which resulted from a witnessed fall while intoxicated on 12/31/2019 resulting in a subdural hematoma, subarachnoid hemorrhage and L intraparenchymal intracerebral hemorrhage with midline shift and declining mental function requiring craniectomy to evacuate the SDH. 2. Chronic alcohol use disorder.....possibly to control chronic pain per the 3. Severe dysphagia requiring PEG tube placement 4. Prolonged extubation requiring tracheostomy 5. Chronic back pain for which he has applied for disability twice and been denied. 6. severe encephalopathy due to TBI 7. HTN - on Clonidine 8. I found no documentation of seizures but.......he is on Keppra 9. PNA with Group F Strep and MRSA 10. suspected Depression Start Vanco consult Dr. Badillo to manage the antibiotics check a CBC with Diff, CMP and a lactic acid now Place in isolation for the MRSA. Hold therapy today since he is not responsive. Inpatient E&M: [id number] [facility] Hosp L3
[2020-03-19 13:06] LABS: Absolute Lymphocyte Count 1.05 X10^3/uL (0.83-4.51); Absolute Neutrophil Count 5.1 X10^3/uL (2.0-7.7); Basophil# 0.02 X10^3/uL; Basophil% 0.3 % (0-1); Eosinophil# 0.06 X10^3/uL; Eosinophils% 0.9 % (0-5); Hematocrit 39.7 % (40-54); Hemoglobin 12.9 g/dL (13.0-16.5); Lymphocyte # 1.05 X10^3/ul (4.0); Lymphocyte % 15.2 % (19-41); Mean Corp Hgb Conc 32.5 g/dL (32-36); Mean Corpuscular Volume 89.2 fL (80-94); Mean Platelet Vol. 10.1 fl (6.2-12.0); Monocyte# 0.67 X10^3/uL; Monocyte% 9.7 % (0-10); NRBC Flagged by Analyzer 0 % (0-5); Neutrophil # 5.11 X10^3/uL (2.7-7.7); Neutrophil % 73.8 % (47-70); Platelet Count 195 K/mm3 (150-450); RBC Distribution Width CV 13.9 % (11.6-14.6); RBC Distribution Width SD 45.3 fl (35.1-43.9); Red Blood Count 4.45 M/mm3 (4.6-6.2); White Blood Count 6.9 K/mm3 (4.4-11.0)
[2020-03-19 13:37] LABS: Anion Gap 8 (5-15); BUN 15 mg/dL (7-18); BUN/Creat Ratio 25.2 RATIO (10-20); Calcium,Total 8.5 mg/dL (8.5-10.1); Chloride 102 mmol/L (98-107); EST Glomerular Filtration Rate 152 mL/min (>60); Est Glom Filt Rate - Afr Amer 184 mL/min (>60); Estimated Creatinine Clearance 141.11 ml/min; Glucose 105 mg/dL (74-106); Potassium 4.1 mmol/L (3.5-5.1); Sodium Level 139 mmol/L (136-145)
[2020-03-19 13:38] LABS: Lactic Acid 1.6 mmol/L (0.4-1.9)
[2020-03-19] MEDS: Vancomycin IV 1,000 MG/200 ML BAG 200 MG IV (14:35)
[2020-03-19] MEDS: 0.9% Saline Lock 10 ML Syringe IV ×2 (14:38→22:58)
[2020-03-19 14:40] VITALS: O2SAT 91
[2020-03-19 14:45] VITALS: O2SAT 86
--- NOTE | 2020-03-19 14:49 | PCM.RX.CS ---
Consult Pharmacy has been consulted to manage selected antiobiotic: Vancomycin Type of Consult: New start Suspected Infection: Pneumonia Prior Doses of Antibiotics Received/Current Regimen: Received initial dose of 1gm iv x 1 on 03.19.20. Labs: Sodium 139 mmol/L (136-145) 03/19/20 12:55 Potassium 4.1 mmol/L (3.5-5.1) 03/19/20 12:55 Chloride 102 mmol/L (98-107) 03/19/20 12:55 Carbon Dioxide 29.0 mmol/L (21.0-32.0) 03/19/20 12:55 Anion Gap 8 (5-15) 03/19/20 12:55 BUN 15 mg/dL (7-18) 03/19/20 12:55 Creatinine 0.60 mg/dL (0.70-1.30) L 03/19/20 12:55 Est GFR (MDRD) Af Amer 184 mL/min (>60) 03/19/20 12:55 Est GFR (MDRD) Non-Af 152 mL/min (>60) 03/19/20 12:55 BUN/Creatinine Ratio 25.2 RATIO (10-20) H 03/19/20 12:55 Glucose 105 mg/dL (74-106) 03/19/20 12:55 Microbiology: Microbiology 03/16/20 14:00 Sputum, Tracheal Aspirate Gram Stain - Final 03/16/20 14:00 Sputum, Tracheal Aspirate Respiratory Culture - Final Meth. resistant Staph. aureus Streptococcus group F Weight used for dosin.5 kg Estimated Creatinine Clearance: 124ml/min Goal Trough: 15-20 mcg/mL Pharmacy Plan for Drug Dosing: Will begin 750mg iv q8h per protocol. Trough level ordered for 03.20.20 before 4th cumulative dose with goal of 15-20 mcg/ml. Pharmacy Service will continue to monitor and adjust dosing as required. Follow-Up Labs: Trough Vancomycin - 03.20.20 @1330 before 1400 dose
--- NOTE | 2020-03-19 16:01 | PCM.HP.ID ---
Reason for Consult: MRSA Consulted by: Dr. Banks History of Present Illness: The patient is a 49 year old M with LOC, fall, TBI, admitted to [facility], had craniectomy for bleed. Now in rehab with trach. Had some sputum, worsened mental status, started on augmentin then vanc added for sputum with MRSA. ROS unobtainable due to mental status. 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 resistant Staph. aureus Streptococcus group F Laboratory Tests Past 24 Hrs 03/19/20 03/19/20 03/19/20 12:55 12:55 12:55 WBC 6.9 RBC 4.45 L Hgb 12.9 L Hct 39.7 L MCV 89.2 MCH 29.0 MCHC 32.5 RDW Std Deviation 45.3 H RDW Coeff of Neha 13.9 Plt Count 195 MPV 10.1 Immature Gran % (Auto) 0.100 Neut % (Auto) 73.8 H Lymph % (Auto) 15.2 L Briscoe % (Auto) 9.7 Eos % (Auto) 0.9 Baso % (Auto) 0.3 Absolute Neuts (auto) 5.1 Absolute Lymphs (auto) 1.05 Nucleated RBC % 0 Sodium 139 Potassium 4.1 Chloride 102 Carbon Dioxide 29.0 Anion Gap 8 BUN 15 Creatinine 0.60 L Estim Creat Clear Calc 141.11 Est GFR (MDRD) Af Amer 184 Est GFR (MDRD) Non-Af 152 BUN/Creatinine Ratio 25.2 H Glucose 105 Lactic Acid 1.6 Calcium 8.5 - Other Studies Radiology: [] reviewed Other Studies: [] Route of nutrition/ use of supplements: [] Nutritional Intake: [] IV Site: [] Cantu Catheter: [] - Physical Exam General: Lethargic, Non-Cooperative Neck: Supple, No Nodes, - - trach Lungs: Clear to auscultation, Diminished Cardiovascular: Regular rate, Regular Rhythm Abdomen: Soft, Non Tender, Non-Distended Extremities: No edema Skin: No rashes IV Site: Peripheral Musculoskeletal: No Tenderness to Palpation of Joints or Extremities - Assessment/Plan Antibiotics: [] Assessment/Plan: [] Active and Suspected Problems TBI (traumatic brain injury) (Acute) Occurred on 12/31/2019. He had a witnessed fall while intoxicated and struck the back of the head. He had LOC. He was taken to [facility] with declining mental status and CTH showed subdural hematoma/subarachnoid hemorrhage/midline shift/cerebral edema. He was taken to surgery for a left craniectomy with evacuation of the subdural hematoma. History of intracranial hemorrhage (Acute) 12/31/19 due to a fall while intoxicated. Subarachnoid hemorrhage/subdural hematoma/left temporal intraparenchymal hemorrhage. History of craniotomy (Acute) 12/31/19 Cognitive dysfunction, acquired (Acute) due to TBI sustained in a fall while intoxicated with intracerebral bleeding requiring craniectomy Dysphagia (Acute) PEG was placed Encephalopathy acute (Acute) due to TBI Subdural hematoma (Acute) Subarachnoid hemorrhage (Acute) MRSA infection - concern for tracheitis vs pneumonia. Agree with vanc/augmentin for now. Plan on 7 days of treatment depending on clinical progress Will follow, thank you
[2020-03-19 19:35] VITALS: BP 102/58; PULSE 86; RESP 16; TEMP 36.7; O2SAT 98
[2020-03-19 21:30] VITALS: PULSE 86; RESP 16
[2020-03-20] MEDS: Glycerin/Hypromellose/PEG400 15 ml Bottle 1 DRP LEFT EYE ×5 (00:50→23:34)
[2020-03-20] MEDS: 0.9% Saline Lock 10 ML Syringe IV ×3 (01:17→14:00)
--- NOTE | 2020-03-20 04:15 | NURSING ---
Reviewed and agreer with CHEMICAL WASTE MANAGEMENT TECHNICIAN documentation and charting.
--- NOTE | 2020-03-20 04:16 | NURSING ---
Pt exhibits no signs of response when staff provide care except for slight eye opening but only occasionally. Incontinence continues and mepilex on coccyx intact. Replaced on previous shift.
[2020-03-20] MEDS: Arthritis Pain Compound 60 CLICK TUBE TOPICAL ×3 (05:08→23:34)
[2020-03-20] MEDS: Acetaminophen 650 MG/20 ML UDC 1000 MG GT ×2 (05:09→13:59)
[2020-03-20] MEDS: Enoxaparin 30 MG/0.3 ML Syringe SC (05:09)
[2020-03-20] MEDS: Jevity 1.5. 1,000 ML Bottle 300 ML GT ×5 (05:15→23:35)
[2020-03-20 05:20] VITALS: O2SAT 96
[2020-03-20 08:41] VITALS: BP 102/58; PULSE 64; RESP 18; TEMP 36.3; O2SAT 95
[2020-03-20] MEDS: Amox/Clav 400mg/5ml Susp 875 MG GT ×2 (09:43→17:30)
[2020-03-20] MEDS: levETIRAcetam Oral Solution 500 MG/5 ML GT ×2 (09:44→23:35)
[2020-03-20] MEDS: cloNIDine HCl 0.1 MG Tablet 0.2 MG GT ×2 (09:44→23:35)
[2020-03-20] MEDS: Sertraline 50 MG Tablet 25 MG PO (09:44)
[2020-03-20] MEDS: Menthol/Lanolin/Calamine/Znox 113 GM Tube 1 APPLIC TOPICAL ×2 (09:46→23:34)
[2020-03-20] MEDS: Nystatin Powder 15gm Bottle 1 APPLIC TOPICAL ×2 (09:46→23:36)
[2020-03-20 13:57] LABS: Vancomycin, Trough Level 11.1 ug/mL (5.0-15.0)
--- NOTE | 2020-03-20 15:49 | PCM.RX.CS ---
Consult Pharmacy has been consulted to manage selected antiobiotic: Vancomycin Type of Consult: Follow-up Suspected Infection: Pneumonia Labs: Sodium 139 mmol/L (136-145) 03/19/20 12:55 Potassium 4.1 mmol/L (3.5-5.1) 03/19/20 12:55 Chloride 102 mmol/L (98-107) 03/19/20 12:55 Carbon Dioxide 29.0 mmol/L (21.0-32.0) 03/19/20 12:55 Anion Gap 8 (5-15) 03/19/20 12:55 BUN 15 mg/dL (7-18) 03/19/20 12:55 Creatinine 0.60 mg/dL (0.70-1.30) L 03/19/20 12:55 Est GFR (MDRD) Af Amer 184 mL/min (>60) 03/19/20 12:55 Est GFR (MDRD) Non-Af 152 mL/min (>60) 03/19/20 12:55 BUN/Creatinine Ratio 25.2 RATIO (10-20) H 03/19/20 12:55 Glucose 105 mg/dL (74-106) 03/19/20 12:55 Vancomycin Trough 11.1 ug/mL (5.0-15.0) 03/20/20 13:20 Microbiology: Microbiology 03/16/20 14:00 Sputum, Tracheal Aspirate Gram Stain - Final 03/16/20 14:00 Sputum, Tracheal Aspirate Respiratory Culture - Final Meth. resistant Staph. aureus Streptococcus group F Goal Trough: 15-20 mcg/mL Pharmacy Plan for Drug Dosing: VANCOMYCIN LEVEL RECEIVED Current Vancomycin Dose: 750mg IV Q8hr Number of Doses Received: 4 (3 prior to trough) Vancomycin Level: 11.1 Hours Since Last Dose: 8hr Renal Function: 0.6 Renal Function Trend: stable Lab/Micro: SCx = MRSA Vancomycin Plan/Comments: Trough drawn 8hrs from last dose administered which resulted in a value of 11.1 (goal 15-20). Will increase dose to 1000mg IV Q8hr and draw a trough prior to 4th dose of new regimen. Will start 1000mg IV Q8hr 03/20/20 @2200, as pt already had 1400 dose today. Pending Level: 03/21/20 @2130 Pharmacy Service will continue to monitor and adjust dosing as required.
[2020-03-20 19:19] VITALS: BP 110/71; PULSE 62; RESP 16; TEMP 36.8; O2SAT 97
[2020-03-20] MEDS: Vancomycin IV 1,000 MG/200 ML BAG 200 MG IV (21:52)
[2020-03-21] MEDS: Acetaminophen 650 MG/20 ML UDC 1000 MG GT ×4 (00:29→23:46)
[2020-03-21] MEDS: 0.9% Saline Lock 10 ML Syringe IV ×4 (01:18→14:23)
[2020-03-21] MEDS: Enoxaparin 30 MG/0.3 ML Syringe SC (05:28)
[2020-03-21] MEDS: Arthritis Pain Compound 60 CLICK TUBE TOPICAL ×3 (05:28→21:18)
[2020-03-21] MEDS: Glycerin/Hypromellose/PEG400 15 ml Bottle 1 DRP LEFT EYE ×4 (05:28→21:19)
[2020-03-21 05:30] VITALS: O2SAT 96
[2020-03-21] MEDS: Jevity 1.5. 1,000 ML Bottle 300 ML GT ×5 (05:30→21:18)
[2020-03-21] MEDS: Vancomycin IV 1,000 MG/200 ML BAG 200 MG IV ×3 (05:46→21:58)
[2020-03-21 07:03] VITALS: O2SAT 95
[2020-03-21 07:30] VITALS: BP 133/77; PULSE 54; RESP 16; TEMP 36.7; O2SAT 95
[2020-03-21] MEDS: cloNIDine HCl 0.1 MG Tablet 0.2 MG GT ×2 (09:05→21:18)
[2020-03-21] MEDS: Sertraline 50 MG Tablet 25 MG PO (09:06)
[2020-03-21] MEDS: levETIRAcetam Oral Solution 500 MG/5 ML GT ×2 (09:06→21:17)
[2020-03-21] MEDS: Polyethylene Glycol 3350 17 GM PACKET PO (09:07)
[2020-03-21] MEDS: Menthol/Lanolin/Calamine/Znox 113 GM Tube 1 APPLIC TOPICAL ×2 (09:10→21:19)
[2020-03-21] MEDS: Nystatin Powder 15gm Bottle 1 APPLIC TOPICAL ×2 (09:11→21:19)
[2020-03-21] MEDS: Amox/Clav 400mg/5ml Susp 875 MG GT ×2 (09:21→17:25)
[2020-03-21] MEDS: Modafinil 200 MG Tablet PO (09:31)
[2020-03-21] MEDS: Amantadine 100 MG Capsule PO ×2 (09:31→21:17)
--- NOTE | 2020-03-21 12:09 | PCM.PN.BLA ---
Progress Note Afebrile VSS Maintaining appropriate oxygen saturation on a trach collar with a 30% FIO2 Tolerating tube feed with no residuals No constipation, no diarrhea Discussed with nursing - no problems that need addressed Reviewed the PT/OT notes Medication list reviewed. lying in bed - unresponsive. Does not open eyes to calling his name or shaking him. Lungs - still with a large amount of tracheal secretions, creamy yellow HRRR, no tachycardia, no gallop abd - flat, soft, no guarding with palpation no peripheral edema withdraws to a painful stimulus to the toenail He is holding the RUE in flexion and resists attempt to straighten it out. Posturing? He is not doing this with the LUE. Pupil on the right is reactive to light......I have to force his eye open....he resists me Impressions 1. severe TBI 2. seizure prophylaxis with Keppra 3. PNA/tracheitis due to Strep group F and MRSA 4. Blind Left eye 5. disturbed sleep/wake cycle? Less responsive than at admission - WHY? Start Provigil to promote wakefulness and Amantadine BID for TBI Continue the antibiotics Has not been able to do 3 hours of therapy the past few days due to acute PNA with decline in strength and awareness. Inpatient E&M: [id number] Subs Hosp L2
[2020-03-21 19:32] VITALS: BP 129/63; PULSE 64; RESP 18; TEMP 36.8; O2SAT 97
--- NOTE | 2020-03-21 23:17 | PCM.RX.CS ---
Consult Pharmacy has been consulted to manage selected antiobiotic: Vancomycin Type of Consult: Follow-up Labs: Sodium 139 mmol/L (136-145) 03/19/20 12:55 Potassium 4.1 mmol/L (3.5-5.1) 03/19/20 12:55 Chloride 102 mmol/L (98-107) 03/19/20 12:55 Carbon Dioxide 29.0 mmol/L (21.0-32.0) 03/19/20 12:55 Anion Gap 8 (5-15) 03/19/20 12:55 BUN 15 mg/dL (7-18) 03/19/20 12:55 Creatinine 0.60 mg/dL (0.70-1.30) L 03/19/20 12:55 Est GFR (MDRD) Af Amer 184 mL/min (>60) 03/19/20 12:55 Est GFR (MDRD) Non-Af 152 mL/min (>60) 03/19/20 12:55 BUN/Creatinine Ratio 25.2 RATIO (10-20) H 03/19/20 12:55 Glucose 105 mg/dL (74-106) 03/19/20 12:55 Vancomycin Trough 17.0 ug/mL (5.0-15.0) H 03/21/20 21:40 Microbiology: Microbiology 03/16/20 14:00 Sputum, Tracheal Aspirate Gram Stain - Final 03/16/20 14:00 Sputum, Tracheal Aspirate Respiratory Culture - Final Meth. resistant Staph. aureus Streptococcus group F Goal Trough: 15-20 mcg/mL Pharmacy Plan for Drug Dosing: Pharmacy Service will continue to monitor and adjust dosing as required. TROUGH 17 NO CHANGES REDRAW TROUGH ON 03/25 @ 2129 Follow-Up Labs: Trough Vancomycin Labs to be done on [date and time ordered]: 03/25 @ 2129
[2020-03-22 05:35] VITALS: O2SAT 96
[2020-03-22] MEDS: Acetaminophen 650 MG/20 ML UDC 1000 MG GT ×3 (05:47→22:54)
[2020-03-22] MEDS: Vancomycin IV 1,000 MG/200 ML BAG 200 MG IV ×3 (05:47→22:48)
[2020-03-22] MEDS: Jevity 1.5. 1,000 ML Bottle 300 ML GT ×5 (05:48→22:37)
[2020-03-22] MEDS: Enoxaparin 30 MG/0.3 ML Syringe SC (05:48)
[2020-03-22] MEDS: Arthritis Pain Compound 60 CLICK TUBE TOPICAL ×3 (05:49→22:46)
[2020-03-22] MEDS: Glycerin/Hypromellose/PEG400 15 ml Bottle 1 DRP LEFT EYE ×4 (05:49→22:34)
[2020-03-22] MEDS: Modafinil 200 MG Tablet PO (05:52)
[2020-03-22 07:30] VITALS: BP 132/77; PULSE 56; RESP 16; TEMP 36.4; O2SAT 97
[2020-03-22 10:13] VITALS: O2SAT 95
[2020-03-22] MEDS: Sertraline 50 MG Tablet 25 MG PO (10:59)
[2020-03-22] MEDS: Amantadine 100 MG Capsule PO ×2 (10:59→22:37)
[2020-03-22] MEDS: cloNIDine HCl 0.1 MG Tablet 0.2 MG GT ×2 (10:59→22:37)
[2020-03-22] MEDS: levETIRAcetam Oral Solution 500 MG/5 ML GT (11:00)
[2020-03-22] MEDS: Menthol/Lanolin/Calamine/Znox 113 GM Tube 1 APPLIC TOPICAL ×2 (11:01→22:46)
[2020-03-22] MEDS: Amox/Clav 400mg/5ml Susp 875 MG GT ×2 (11:01→18:24)
[2020-03-22] MEDS: Nystatin Powder 15gm Bottle 1 APPLIC TOPICAL ×2 (11:02→22:46)
--- NOTE | 2020-03-22 12:13 | PCM.PN.BLA ---
Progress Note Day #5/7 vancomycin and Augmentin Afebrile since admission Vital signs are stable Maintaining appropriate oxygen saturation on a 30% FiO2 via trach collar No residuals on the tube feed PT/OT notes reviewed. He stood for 10 minutes with assist of 2 and the Svetlana lift today. He did open his eye briefly upon standing but then closed it again. He had increased tone vs guarding in the legs today.....could not get the same ROM he had yesterday. He was sitting in the recliner when I entered the room. He has increased tone in the R arm and holds it in a flexed position....I can passively stretch it out. Also has tightness in the legs per PT. He has kicked the boot off his Left leg a few times. He withdraws to a painful stimulus. He would not respond to me today when I called his name or shook his shoulder. He is chewing when stimulated and he has crescendo/decrescendo breathing pattern. He is still coughing, not as much. Lungs - no rales or wheezes today HRRR Abd is soft with no guarding with palpation. BS's are normal. The PEG site and no erythema and no DC around it. Babinski's at upgoing BL. Impressions 1. debility due to TBI 2. increased tone in the RUE and the legs - etiology? is he resisting movement due to pain? Central pain S.? increased muscle tone due to medication? seizure? I am going to hold the Provigil and see if the increase in tone resolves. 3. severe encephalopathy - he has declined since admission to rehab. Less responsive. Was able to do the Nu-step with assist at admission......now not responding. I though it may be related to PNA/tracheitis but, he is no more responsive after 5 days of antibiotics. I question whether he could be having seizures, non-convulsive? I am going to order a EEG. CBC with diff and a BMP in the AM If no seizures and the increased tone does not resolve with DC of the Provigil will give a trial of Gabapentin for possible central pain S. Inpatient E&M: [id number] Subs Hosp L2
--- NOTE | 2020-03-22 12:42 | TELEMED_ITS ---
[facility] Telemed has confirmed receipt of a request for visit. This document confirms receipt of the order initiating the consult. To find the results of the consultation, please view the patient's reports for the scanned Telemed Consult.
[2020-03-22] MEDS: 0.9% Saline Lock 10 ML Syringe IV ×2 (13:41→22:45)
[2020-03-22] MEDS: LORazepam 2 MG/ML Syringe 1 MG IV (15:53)
[2020-03-22 19:32] VITALS: BP 118/64; PULSE 60; RESP 16; TEMP 37.2; O2SAT 97
[2020-03-22 22:00] VITALS: PULSE 62; RESP 16
[2020-03-22] MEDS: levETIRAcetam Oral Solution 500 MG/5 ML 1000 MG GT (22:37)
[2020-03-23] MEDS: Vancomycin IV 1,000 MG/200 ML BAG 200 MG IV (04:43)
[2020-03-23] MEDS: 0.9% Saline Lock 10 ML Syringe IV (04:45)
[2020-03-23] MEDS: Enoxaparin 30 MG/0.3 ML Syringe SC (05:21)
[2020-03-23] MEDS: Acetaminophen 650 MG/20 ML UDC 1000 MG GT (05:21)
[2020-03-23] MEDS: Glycerin/Hypromellose/PEG400 15 ml Bottle 1 DRP LEFT EYE (05:21)
[2020-03-23] MEDS: Arthritis Pain Compound 60 CLICK TUBE TOPICAL (05:21)
[2020-03-23] MEDS: Jevity 1.5. 1,000 ML Bottle 300 ML GT ×2 (05:21→10:16)
[2020-03-23 06:06] LABS: Absolute Neutrophil Count 4.2 X10^3/uL (2.0-7.7); Basophil# 0.02 X10^3/uL; Basophil% 0.3 % (0-1); Eosinophil# 0.08 X10^3/uL; Eosinophils% 1.4 % (0-5); Hematocrit 38.5 % (40-54); Hemoglobin 12.7 g/dL (13.0-16.5); Lymphocyte % 20.7 % (19-41); Mean Corpuscular Hgb 29.1 pg (27.0-32.0); Mean Corpuscular Volume 88.3 fL (80-94); Mean Platelet Vol. 10.2 fl (6.2-12.0); Monocyte# 0.29 X10^3/uL; NRBC Flagged by Analyzer 0 % (0-5); Neutrophil # 4.18 X10^3/uL (2.7-7.7); Neutrophil % 71.9 % (47-70); Platelet Count 234 K/mm3 (150-450); RBC Distribution Width CV 13.8 % (11.6-14.6); RBC Distribution Width SD 44.5 fl (35.1-43.9); Red Blood Count 4.36 M/mm3 (4.6-6.2); White Blood Count 5.8 K/mm3 (4.4-11.0)
[2020-03-23 06:27] LABS: Anion Gap 7 (5-15); BUN 11 mg/dL (7-18); BUN/Creat Ratio 14.7 RATIO (10-20); Calcium,Total 8.5 mg/dL (8.5-10.1); Chloride 103 mmol/L (98-107); Creatinine, Serum 0.75 mg/dL (0.70-1.30); EST Glomerular Filtration Rate 117 mL/min (>60); Est Glom Filt Rate - Afr Amer 141 mL/min (>60); Estimated Creatinine Clearance 112.88 ml/min; Glucose 147 mg/dL (74-106); Potassium 3.3 mmol/L (3.5-5.1); Sodium Level 136 mmol/L (136-145)
[2020-03-23 07:05] VITALS: BP 129/81; PULSE 68; RESP 18; TEMP 36.5; O2SAT 95
[2020-03-23 07:50] VITALS: O2SAT 96
[2020-03-23] MEDS: levETIRAcetam Oral Solution 500 MG/5 ML 1000 MG GT (10:14)
[2020-03-23] MEDS: Sertraline 50 MG Tablet 25 MG PO (10:15)
[2020-03-23] MEDS: cloNIDine HCl 0.1 MG Tablet 0.2 MG GT (10:15)
[2020-03-23] MEDS: Amantadine 100 MG Capsule PO (10:15)
[2020-03-23] MEDS: Nystatin Powder 15gm Bottle 1 APPLIC TOPICAL (10:16)
[2020-03-23] MEDS: Menthol/Lanolin/Calamine/Znox 113 GM Tube 1 APPLIC TOPICAL (10:16)
[2020-03-23] MEDS: Amox/Clav 400mg/5ml Susp 875 MG GT (10:21)
--- NOTE | 2020-03-23 11:20 | CT_ITS ---
STUDY: CT BRAIN WITHOUT CONTRAST REASON FOR EXAM: Male, 49 years old. Status epilipticus, traumatic brain injury 12/2019 with left craniotomy d/t subdural, subarachdnoid and left temporal intraparenchymal hemorrhage/ RADIATION DOSAGE (If Supplied By Facility): CTDIvol = ( 44.99 ) mGy, DLP = ( 796.11 ) mGycm TECHNIQUE: Transaxial CT imaging of the brain was performed without administration of intravenous contrast material. Individualized dose optimization techniques were used for this CT. COMPARISON: Comparison is made with prior examination dated 02/15/2020. FINDINGS: Normal soft tissue structures. The patient is status post left frontal temporoparietal craniotomy. Once again, there is evidence of herniation of the left temporal parietal lobes to the level of the skull. There is evidence of encephalomalacia in the left frontal as well as left posterior parietal temporal lobes. There has been no change as compared to prior study. Normal brainstem. Normal cerebellum. There is no intracranial hemorrhage. There are no findings of an acute ischemic infarction. Normal visualized paranasal sinuses. CT/Brain/Head without Contrast IMPRESSION: Stable examination. Electronically Signed: Juarez Torres, at 12:59 EST , Service support ,
--- NOTE | 2020-03-23 11:43 | PCM.PN.BLA ---
Progress Note Afebrile VSS 95% on RA today Less secretions from the trach. Minimal cough. Secretions are thinner and more clear today. He is still unresponsive. does not arouse to calling his name or shaking him. He withdraws to a painful stimulus. Muscle tone has changed.....increased tone yesterday in the RUE and the legs.....today he is limp in all extremities. He was having decerebrate posturing in the RUE yesterday when I put pressure on the fingernail bed.......today he is withdrawing his RUE when I touch him. No chewing or sucking today. Lungs - occasional rhonchi, no crackles, not tachypneic HRRR, no gallop and no MM abd - soft, ND, no guarding with palpation, PEG site is clean with no erythema and no DC no peripheral edema. he resists me trying to open the left eye. K is 3.3 today. The remainder of the lab is unremarkable. Impressions 1. NCS with status epilepticus on EEG done yesterday afternoon. Still unresponsive after increase in the Keppra to 1,000 mg BID. 2. Severe traumatic brain injury due to a fall 3. Alcohol abuse 4. tracheitis/PNA due to Group F strep and MRSA - this is day 6 of 7 of IV Vanco and Augmentin 5. Hypokalemia - supplemented Add Vimpat and give 200 mg IV now and then 100 mg BID CTB without contrast. COVID rapid antigen. I have contacted several tertiary care centers to transfer patient to neuro ICU for continuous EEG monitoring but, No one has any available ICU beds and the hospital are full. [facility] on a [facility] list I have talked with his Molly and she is OK with transfer. STROKE Vital Signs/Narrative: Vital Signs Pulse Ox 03/23/20 07:50 96 Inpatient E&M: [id number] Subs Hosp L3
[2020-03-23 12:40] VITALS: BP 129/81; PULSE 68; RESP 18; TEMP 36.5; O2SAT 95
--- NOTE | 2020-03-23 12:54 | DS.PCM_ITS ---
Discharge Date and Diagnosis - Problem List Patient Problems: Active and Suspected Problems TBI (traumatic brain injury) (Acute) Occurred on 12/31/2019. He had a witnessed fall while intoxicated and struck the back of the head. He had LOC. He was taken to [facility] with declining mental status and CTH showed subdural hematoma/subarachnoid hemorrhage/midline shift/cerebral edema. He was taken to surgery for a left craniectomy with evacuation of the subdural hematoma. History of intracranial hemorrhage (Acute) 12/31/19 due to a fall while intoxicated. Subarachnoid hemorrhage/subdural hematoma/left temporal intraparenchymal hemorrhage. History of craniotomy (Acute) 12/31/19 Cognitive dysfunction, acquired (Acute) due to TBI sustained in a fall while intoxicated with intracerebral bleeding requiring craniectomy Dysphagia (Acute) PEG was placed Encephalopathy acute (Acute) due to TBI Subdural hematoma (Acute) Subarachnoid hemorrhage (Acute) Date of Admission: 03/14/20 Date of Discharge: 03/23/20 - Primary Discharge Diagnosis Acute Problems: Active Problems Non-convulsive status epilepticus TBI (traumatic brain injury) (Acute) Occurred on 12/31/2019. He had a witnessed fall while intoxicated and struck the back of the head. He had LOC. He was taken to [facility] with declining mental status and CTH showed subdural hematoma/subarachnoid hemorrhage/midline shift/cerebral edema. He was taken to surgery for a left craniectomy with evacuation of the subdural hematoma. History of intracranial hemorrhage (Acute) 12/31/19 due to a fall while intoxicated. Subarachnoid hemorrhage/subdural hematoma/left temporal intraparenchymal hemorrhage. History of craniotomy (Acute) 12/31/19 - the skull was not replaced to allow the brain to swell without herniating. He wears a helmet Encephalopathy/Cognitive dysfunction, acquired (Acute) due to TBI sustained in a fall while intoxicated with intracerebral bleeding requiring craniectomy Dysphagia (Acute) PEG was placed Subdural hematoma (Acute) Subarachnoid hemorrhage (Acute) Tracheitis vs PNA due to MRSA and Group F Strep. 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 Possible lucent lesion within the proximal humerus. Electronically Signed: Antoine Harpreet at 16:54 EST Tel [phone], Service support , Laboratory Last Values WBC 5.8 K/mm3 (4.4-11.0) 03/23/20 05:40 RBC 4.36 M/mm3 (4.6-6.2) L 03/23/20 05:40 Hgb 12.7 g/dL (13.0-16.5) L 03/23/20 05:40 Hct 38.5 % (40-54) L 03/23/20 05:40 MCV 88.3 fL (80-94) 03/23/20 05:40 MCH 29.1 pg (27.0-32.0) 03/23/20 05:40 MCHC 33.0 g/dL (32-36) 03/23/20 05:40 RDW Std Deviation 44.5 fl (35.1-43.9) H 03/23/20 05:40 RDW Coeff of Neha 13.8 % (11.6-14.6) 03/23/20 05:40 Plt Count 234 K/mm3 (150-450) 03/23/20 05:40 MPV 10.2 fl (6.2-12.0) 03/23/20 05:40 Immature Gran % (Auto) 0.700 % (0.0-0.9) 03/23/20 05:40 Neut % (Auto) 71.9 % (47-70) H 03/23/20 05:40 Lymph % (Auto) 20.7 % (19-41) 03/23/20 05:40 [place] % (Auto) 5.0 % (0-10) 03/23/20 05:40 Eos % (Auto) 1.4 % (0-5) 03/23/20 05:40 Baso % (Auto) 0.3 % (0-1) 03/23/20 05:40 Absolute Neuts (auto) 4.2 X10^3/uL (2.0-7.7) 03/23/20 05:40 Absolute Lymphs (auto) 1.20 X10^3/uL (0.83-4.51) 03/23/20 05:40 Nucleated RBC % 0 % (0-5) 03/23/20 05:40 Sodium 136 mmol/L (136-145) 03/23/20 05:40 Potassium 3.3 mmol/L (3.5-5.1) L 03/23/20 05:40 Chloride 103 mmol/L (98-107) 03/23/20 05:40 Carbon Dioxide 26.0 mmol/L (21.0-32.0) 03/23/20 05:40 Anion Gap 7 (5-15) 03/23/20 05:40 BUN 11 mg/dL (7-18) 03/23/20 05:40 Creatinine 0.75 mg/dL (0.70-1.30) 03/23/20 05:40 Estim Creat Clear Calc 112.88 ml/min 03/23/20 05:40 Est GFR (MDRD) Af Amer 141 mL/min (>60) 03/23/20 05:40 Est GFR (MDRD) Non-Af 117 mL/min (>60) 03/23/20 05:40 BUN/Creatinine Ratio 14.7 RATIO (10-20) 03/23/20 05:40 Glucose 147 mg/dL (74-106) H 03/23/20 05:40 Lactic Acid 1.6 mmol/L (0.4-1.9) 03/19/20 12:55 Calcium 8.5 mg/dL (8.5-10.1) 03/23/20 05:40 Phosphorus 4.1 mg/dL (2.5-4.9) 03/15/20 06:30 Magnesium 2.1 mg/dL (1.6-2.6) 03/15/20 06:30 Total Bilirubin 0.60 mg/dL (0.20-1.00) 03/15/20 06:30 AST 18 U/L (15-37) 03/15/20 06:30 ALT 38 U/L (16-61) 03/15/20 06:30 Alkaline Phosphatase 107 U/L (45-117) 03/15/20 06:30 Total Protein 6.9 g/dL (6.4-8.2) 03/15/20 06:30 Albumin 3.1 g/dL (3.2-5.0) L 03/15/20 06:30 Globulin 3.8 g/dL (2.2-4.2) 03/15/20 06:30 Albumin/Globulin Ratio 0.8 RATIO (0.9-2.4) L 03/15/20 06:30 Vancomycin Trough 17.0 ug/mL (5.0-15.0) H 03/21/20 21:40 Microbiology 03/23/20 11:35 Mucosa - Nose SARS-CoV-2 Antigen (Rapid) - Final Negative 03/16/20 14:00 Sputum, Tracheal Aspirate Gram Stain - Final 03/16/20 14:00 Sputum, Tracheal Aspirate Respiratory Culture - Final Meth. resistant Staph. aureus Streptococcus group F Dr. Rick Badillo - ID Operations: None Procedures: Electroencephalogram - 03/22/20 - interpreted by SOC Summary of Care Provided: The patient is a 49 year old M with a hx of chronic ETOH use disorder and chronic back pain (per his ) who had a witnessed fall on 12/31/19 while intoxicated striking the back of his head and losing consciousness. He was taken to [facility] where a CTB showed SAH/SDH/Left intraparenchymal cerebral hemorrhage with midline shift. He underwent a craniectomy to evacuate the SDH. On 01/04/20 he had a PEG tube inserted and a tracheostomy. He required high doses of multiple sedatives to control behavior initially and he could not be extubated. Eventually he was transferred to an LT[facility] ([facility] He was weaned off all sedatives. According to recent notes from [facility] he was alert but followed no commands. He was tolerating a PMSV for only 12 minutes. He was tolerating continuous TF without residuals. He was transferred to [facility] acute rehab on 03/14/20 for 3 hours of therapy daily to restore him as near as possible to his previous baseline. When he was evaluated by PT on 03/15/20 he was able to follow some commands and he participated in the evaluation. He was able to stand while holding onto the sink. He was placed on the Nu-Step and he moved both legs and the LUE at [facility]. When I examined him he made eye contact and smiled at when I told him my name. He was able to respond to questions by squeezing my hand with his LUE. Over the next few days he grew less responsive and he was evaluated for infection. He had copious amounts of creamy yellow sputum and had to be placed on O2 via trach collar at 30% FIO2. He ws started on Vancomycin and Augmentin. Sputum culture grew group F Streptococcus and MRSA. He was seen in consultation by Dr. Rick Badillo from infectious disease who agreed with the antibiotics and recommended 7 days of treatment. I initially suspected the decline in level of alertness was due to infection however he did not recover after a few days of antibiotics. On 03/22/20 he had increased muscle tone in the RUE (previously flaccid) and also had increased tone in the Legs. He was unresponsive and did not arouse with calling his name or shaking him. He withdrew to painful stimulus. Babinski's were upgoing BL. EEG was obtained and showed non-convulsive status epilepticus in the left frontal region with multiple focal seizures arising in the left frontal region lasting approximately 30 to 45 seconds each. There was also evidence of moderate to severe diffuse encephalopathy based on continuous slow generalized pattern. He was given 1 mg of IV Ativan and Keppra was increased to 1,000 GM BID. I discussed possible transfer with his Molly for continuous EEG monitoring and we agreed to see how he responded to the increased dose of Keppra and re-evaluate in the morning. I saw him in the morning early on 03/23/20 and he remained unresponsive. I have not witnessed any convulsive activity. The muscle tone is now flaccid in all extremities. Babinski's are still upgoing BL. He withdraws to a painful stimulus but does not respond to calling his name or shaking him. Molly is agreeable to transfer to a tertiary facility where he can have continuous EEG monitoring. I have added Vimpat. A CTB was ordered and we are awaiting the official read from radiology but per my review there is no bleeding. There is extensive encephalomalacia on the left side of the brain and the brain is swollen and protruding from the bone defect left following craniectomy when the bone fragment was not replaced. I was in contact with [facility] and they have a bed available and Dr. Escalona will be the accepting physician. Dr. Escalona recommended placing the pt on a ventilator and sedating him prior to transfer to [facility]. I discussed this with Dr. Boudreaux, the manager of pmo at [facility], and he will get Loyd on a ventilator. He currently has a #[address] The trach was done on 01/04/20 [address] [facility]. Dr. Escalona also wanted him to receive 1 GM of IV Keppra prior to transfer. This has been ordered. I left a VM for his Molly informing of her of the transfer to [facility]. I left the number of our ICU on the VM so she could call and talk to staff. I contacted radiology and they tell me there is non change on the CT scan and they will make a disc of the CT to send with the pt to [facility]. Afebrile VSS 95% on RA today Less secretions from the trach. Minimal cough. Secretions are thinner and more clear today. He is still unresponsive. does not arouse to calling his name or shaking him. He withdraws to a painful stimulus. Muscle tone has changed.....increased tone yesterday in the RUE and the legs.....today he is limp in all extremities. He was having decerebrate posturing in the RUE yesterday when I put pressure on the fingernail bed.......today he is withdrawing his RUE when I touch him. No chewing or sucking today. Lungs - occasional rhonchi, no crackles, not tachypneic HRRR, no gallop and no MM abd - soft, ND, no guarding with palpation, PEG site is clean with no erythema and no DC no peripheral edema. he resists me trying to open the left eye. This note was generated with [employer] dictation software. It may contain incorrect words, spelling, and punctuation that were not noted in checking the note before signing. Patient Problems: Active and Suspected Problems TBI (traumatic brain injury) (Acute) Occurred on 12/31/2019. He had a witnessed fall while intoxicated and struck the back of the head. He had LOC. He was taken to [facility] with declining mental status and CTH showed subdural hematoma/subarachnoid hemorrhage/midline shift/cerebral edema. He was taken to surgery for a left craniectomy with evacuation of the subdural hematoma. History of intracranial hemorrhage (Acute) 12/31/19 due to a fall while intoxicated. Subarachnoid hemorrhage/subdural hematoma/left temporal intraparenchymal hemorrhage. History of craniotomy (Acute) 12/31/19 Cognitive dysfunction, acquired (Acute) due to TBI sustained in a fall while intoxicated with intracerebral bleeding requiring craniectomy Dysphagia (Acute) PEG was placed Encephalopathy acute (Acute) due to TBI Subdural hematoma (Acute) Subarachnoid hemorrhage (Acute) - Physical Exam Vitals/I&O's: Vital Signs Temp Pulse Resp BP Pulse Ox 97.7 F L 68 18 129/81 H 96 03/23/20 07:05 03/23/20 07:05 03/23/20 07:05 03/23/20 07:05 03/23/20 07:50 Oxygen Flow Rate (L/min) 6 Oxygen Delivery Method Trach Collar Weight: 150 lb 15.984 oz Body Mass Index (BMI) 22.3 Intake and Output for Last 24 Hours 03/21/20 03/22/20 03/23/20 23:59 23:59 23:59 Intake Total 4005.25 / 4555.25 4950 / 4950 1150 / 1150 Balance 4005.25 / 4555.25 4950 / 4950 1150 / 1150 Microbiology Past 72 Hours 03/23/20 11:35 Mucosa - Nose SARS-CoV-2 Antigen (Rapid) - Final Laboratory Results 03/23/20 05:40: WBC 5.8, RBC 4.36 L, Hgb 12.7 L, Hct 38.5 L, MCV 88.3, MCH 29.1, MCHC 33.0, RDW Std Deviation 44.5 H, RDW Coeff of Neha 13.8, Plt Count 234, MPV 10.2, Immature Gran % (Auto) 0.700, Neut % (Auto) 71.9 H, Lymph % (Auto) 20.7, [place] % (Auto) 5.0, Eos % (Auto) 1.4, Baso % (Auto) 0.3, Absolute Neuts (auto) 4.2, Absolute Lymphs (auto) 1.20, Nucleated RBC % 0 03/23/20 05:40: Sodium 136, Potassium 3.3 L, Chloride 103, Carbon Dioxide 26.0, Anion Gap 7, BUN 11, Creatinine 0.75, Estim Creat Clear Calc 112.88, Est GFR (MDRD) Af Amer 141, Est GFR (MDRD) Non-Af 117, BUN/Creatinine Ratio 14.7, Glucose 147 H, Calcium 8.5 Current Medications Acetaminophen (Acetaminophen 650 Mg/20 Ml Udc) 1,000 mg GT Q8 [facility] Last Admin: 03/23/20 05:21 Dose: 1,000 mg Documented by: Amantadine HCl (Amantadine 100 Mg Capsule) 100 mg PO BID [facility] Last Admin: 03/23/20 10:15 Dose: 100 mg Documented by: Amoxicillin/Clavulanate Potassium (Amox/Clav 400mg/5ml Susp) 875 mg GT BIDCM [facility] Last Admin: 03/23/20 10:21 Dose: 875 mg Documented by: Bisacodyl (Bisacodyl 10 Mg Suppository) 10 mg RECTAL .PRN X 1 PRN PRN Reason: Constipation Calamine/Phenol (Menthol/Lanolin/Calamine/Znox 113 Gm Tube) 1 applic TOPICAL BID [facility]; Protocol Last Admin: 03/23/20 10:16 Dose: 1 applicatio Documented by: Clonidine (Clonidine Hcl 0.1 Mg Tablet) 0.2 mg GT BID [facility] Last Admin: 03/23/20 10:15 Dose: 0.2 mg Documented by: Compound Med (Arthritis Pain Compound 60 Click Tube) 3 click TOPICAL TID [facility]; Protocol Last Admin: 03/23/20 05:21 Dose: 3 click Documented by: Enoxaparin Sodium (Enoxaparin 30 Mg/0.3 Ml Syringe) 30 mg SC DAILY@0600 [facility] Last Admin: 03/23/20 05:21 Dose: 30 mg Documented by: Enteral Nutritional Formula (Jevity 1.5. 1,000 Ml Bottle) 300 ml GT 5X/DAY [facility] Last Admin: 03/23/20 10:16 Dose: 300 ml Documented by: Vancomycin IV Pharmacy to Dose (1 ea/ Sodium Chloride) 500 mls @ 250 mls/hr IV PRN PRN; Protocol PRN Reason: Rx to Dose Sodium Chloride () 250 mls @ 15 mls/hr IV .[id number] [facility] Last Infusion: 03/23/20 07:32 Dose: Infused Documented by: Vancomycin HCl (Vancomycin) 1,000 mg in 200 mls @ 200 mls/hr IV Q8H [facility] Last Infusion: 03/23/20 07:29 Dose: Infused Documented by: Lacosamide 100 mg/ Sodium (Chloride) 60 mls @ 100 mls/hr IV BID MILI Levetiracetam (Levetiracetam Oral Solution 500 Mg/5 Ml) 1,000 mg GT BID [facility] Last Admin: 03/23/20 10:14 Dose: 1,000 mg Documented by: Magnesium Hydroxide (Magnesium Hydroxide 30 Ml Udc) 30 ml PO .PRN X 1 PRN PRN Reason: Constipation Multi-Ingredient Cream (Mineral Oil/Petrolatum,White Jar) 1 applic TOPICAL BID PRN PRN; Protocol PRN Reason: DRY SKIN Nystatin (Nystatin Powder 15gm Bottle) 1 applic TOPICAL BID MILI; Protocol Last Admin: 03/23/20 10:16 Dose: 1 applicatio Documented by: Polyethylene Glycol (Polyethylene Glycol 3350 17 Gm Packet) 17 gm PO DAILY [facility] Last Admin: 03/23/20 10:15 Dose: Not Given Documented by: Promethazine HCl (Promethazine 25 Mg Tablet) 12.5 mg PO Q6H PRN PRN PRN Reason: NAUSEA/VOMITING Sertraline HCl (Sertraline 50 Mg Tablet) 25 mg PO DAILY [facility] Last Admin: 03/23/20 10:15 Dose: 25 mg Documented by: Sodium Chloride (0.9% Saline Lock 10 Ml Syringe) 10 - 40 ml IV UD PRN PRN Reason: SALINE FLUSH Last Admin: 03/23/20 04:45 Dose: 10 ml Documented by: Primary Care Physician: Cheng Chapa MD [Primary Care Provider] - Disposition: Acute care Hospital - From [facility] ICU to [facility]. Dr. Escalona accepting. Minutes spent on discharge:: 75 Patient Condition:: Guarded Medical Necessity - Tobacco Use Smoking Status: Never smoker Tobacco Use: Non-smoker Meaningful Use Info Meaningful Use Diagnoses (Choose all that apply): None applicable Inpatient E&M: 82610 Disch Hosp
--- NOTE | 2020-03-23 12:58 | NURSING ---
verbal order from dr calix to infuse Vimpat 200 mg IV within 15 minutes. after calculating the dosage, Vimpat increased to 280 ml/hr in order for infusion to complete in 15 minutes. original order Vimpat 200 mg @ 100 ml/hr.
[2020-03-23] MEDS: levETIRAcetam IV 1,000 MG/100 ML BAG 400 MG IV (14:14)
--- NOTE | 2020-03-23 15:23 | PN.ID_ITS ---
Patient Problems: Active and Suspected Problems TBI (traumatic brain injury) (Acute) Occurred on 12/31/2019. He had a witnessed fall while intoxicated and struck the back of the head. He had LOC. He was taken to [facility] with declining mental status and CTH showed subdural hematoma/subarachnoid hemorrhage/midline shift/cerebral edema. He was taken to surgery for a left craniectomy with evacuation of the subdural hematoma. History of intracranial hemorrhage (Acute) 12/31/19 due to a fall while intoxicated. Subarachnoid hemorrhage/subdural hematoma/left temporal intraparenchymal hemorrhage. History of craniotomy (Acute) 12/31/19 Cognitive dysfunction, acquired (Acute) due to TBI sustained in a fall while intoxicated with intracerebral bleeding requiring craniectomy Dysphagia (Acute) PEG was placed Encephalopathy acute (Acute) due to TBI Subdural hematoma (Acute) Subarachnoid hemorrhage (Acute) Subjective: Concern for ongoing status epilepticus. Secretions have improved with abx. - Physical Exam Vitals/I&O's: Vital Signs Temp Pulse Resp BP Pulse Ox 97.7 F L 68 18 129/81 H 95 03/23/20 12:40 03/23/20 12:40 03/23/20 12:40 03/23/20 12:40 03/23/20 12:40 Oxygen Flow Rate (L/min) 6 Oxygen Delivery Method Trach Collar Weight: 68.492 kg Body Mass Index (BMI) 22.3 Intake and Output for Last 24 Hours 03/21/20 03/22/20 03/23/20 23:59 23:59 23:59 Intake Total 4005.25 / 4555.25 4950 / 4950 1220 / 1220 Balance 4005.25 / 4555.25 4950 / 4950 1220 / 1220 General: Non-Cooperative Lungs: Clear to auscultation, Diminished Cardiovascular: Regular rate, Regular Rhythm Abdomen: Soft, Non Tender, Non-Distended Skin: No rashes Microbiology Past 72 Hours 03/23/20 11:35 Mucosa - Nose SARS-CoV-2 Antigen (Rapid) - Final Laboratory Results 03/23/20 05:40: WBC 5.8, RBC 4.36 L, Hgb 12.7 L, Hct 38.5 L, MCV 88.3, MCH 29.1, MCHC 33.0, RDW Std Deviation 44.5 H, RDW Coeff of Neha 13.8, Plt Count 234, MPV 10.2, Immature Gran % (Auto) 0.700, Neut % (Auto) 71.9 H, Lymph % (Auto) 20.7, [place] % (Auto) 5.0, Eos % (Auto) 1.4, Baso % (Auto) 0.3, Absolute Neuts (auto) 4.2, Absolute Lymphs (auto) 1.20, Nucleated RBC % 0 03/23/20 05:40: Sodium 136, Potassium 3.3 L, Chloride 103, Carbon Dioxide 26.0, Anion Gap 7, BUN 11, Creatinine 0.75, Estim Creat Clear Calc 112.88, Est GFR (MDRD) Af Amer 141, Est GFR (MDRD) Non-Af 117, BUN/Creatinine Ratio 14.7, Glucose 147 H, Calcium 8.5 Medical Necessity - Tobacco Use Smoking Status: Never smoker Tobacco Use: Non-smoker Route of nutrition/ use of supplements: [] Nutritional Intake: [] IV Site: [] Cantu Catheter: [] - Assessment/Plan Antibiotics: [] Assessment/Plan: [] Active and Suspected Problems TBI (traumatic brain injury) (Acute) Occurred on 12/31/2019. He had a witnessed fall while intoxicated and struck the back of the head. He had LOC. He was taken to [facility] with declining mental status and CTH showed subdural hematoma/subarachnoid hemorrhage/midline shift/cerebral edema. He was taken to surgery for a left craniectomy with evacuation of the subdural hematoma. History of intracranial hemorrhage (Acute) 12/31/19 due to a fall while intoxicated. Subarachnoid hemorrhage/subdural hematoma/left temporal intraparenchymal hemorrhage. History of craniotomy (Acute) 12/31/19 Cognitive dysfunction, acquired (Acute) due to TBI sustained in a fall while intoxicated with intracerebral bleeding requiring craniectomy Dysphagia (Acute) PEG was placed Encephalopathy acute (Acute) due to TBI Subdural hematoma (Acute) Subarachnoid hemorrhage (Acute) MRSA infection - concern for tracheitis vs pneumonia, completes course of vanc/augmentin tomorrow. Will follow as needed, d/w Dr. Banks
== END 2020-03-23 14:55 | disposition short-term general hospital (02) | DRG 949 ==
PROVIDERS: Internal Medicine Infectious Disease; Admitting Provider Internal Medicine; PCP Family Medicine; Visit Provider Internal Medicine
DX: S06.5X9D Traumatic subdural hemorrhage with loss of consciousness of unspecified duration, subsequent encounter (principal); J15.212 Pneumonia due to Methicillin resistant Staphylococcus aureus; J15.4 Pneumonia due to other streptococci; G93.40 Encephalopathy, unspecified; S06.6X9D Traumatic subarachnoid hemorrhage with loss of consciousness of unspecified duration, subsequent encounter; W19.XXXD Unspecified fall, subsequent encounter; F10.10 Alcohol abuse, uncomplicated; H54.61 Unqualified visual loss, right eye, normal vision left eye; Z93.1 Gastrostomy status; Z93.0 Tracheostomy status; I10 Essential (primary) hypertension; R13.10 Dysphagia, unspecified; G40.A01 Absence epileptic syndrome, not intractable, with status epilepticus
CPT/HCPCS: 31720; 36415; 70450; 71045; 80048; 80053; 80202; 83605; 83735; 84100; 85025; 87070; 87077; 87186; 87205; 87426; 92507; 92523; 92526; 92610; 95819; 97110; 97112; 97140; 97162; 97166; 97530; 97535; 97802; J7030; J7050; A4216; C9254; J3490

== ENCOUNTER 2020-03-23 15:26 | Inpatient (IN) | payer OTHER, SELFPAY ==
[2020-03-23] VITALS (7 sets, daily range): BP systolic 90–110; BP diastolic 60–76; PULSE 60–65; RESP 12–15; O2SAT 25–100
[2020-03-23] MEDS: Propofol 10MG/Ml 1,000 MG/100 ML Bottle 2 MG CONT INF (15:39)
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
--- NOTE | 2020-03-23 19:31 | NURSING ---
monitored pt for 45 min until physicians services arrived to pick pt up at 1545. They left for [place] at 1500. The pt was ventilated and on minimal propofol.
--- NOTE | 2020-03-23 20:13 | NURSING ---
the pt arrived to ICU from rehab at 1500. the pt was placed on a ventilator and propofol. the pt was monitored in ICU until physicians services picked up the pt at 1700. The pt was transferred to [facility].
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
== END 2020-03-23 17:00 | disposition other institution (70) | DRG 101 ==
PROVIDERS: Admitting Provider Internal Medicine; PCP Family Medicine; Visit Provider Internal Medicine
DX: G40.919 Epilepsy, unspecified, intractable, without status epilepticus (principal); F10.20 Alcohol dependence, uncomplicated; I10 Essential (primary) hypertension; R13.12 Dysphagia, oropharyngeal phase; E87.6 Hypokalemia; Z87.820 Personal history of traumatic brain injury; M47.816 Spondylosis without myelopathy or radiculopathy, lumbar region; H54.61 Unqualified visual loss, right eye, normal vision left eye
CPT/HCPCS: 31720; 94002

== ENCOUNTER 2020-07-10 11:59 | Inpatient (IN) | payer OTHER, SELFPAY ==
[2020-07-10 12:12] VITALS: BP 125/64; PULSE 68; RESP 16; TEMP 36.8; O2SAT 96; BMI 22.4
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
[2020-07-10 15:03] VITALS: O2SAT 96
[2020-07-10] MEDS: Lactulose 20 GM/30 ML UDC 30 GM PO ×3 (15:28→21:53)
[2020-07-10] MEDS: Propranolol 40 MG Tablet 60 MG PO ×2 (15:52→21:54)
[2020-07-10 16:01] VITALS: BP 116/71; PULSE 68
--- NOTE | 2020-07-10 18:30 | NURSING ---
aware of team on Thursday and visitation hours
[2020-07-10 19:37] VITALS: BP 104/64; PULSE 69; RESP 16; TEMP 36.3; O2SAT 96
[2020-07-10] MEDS: Senna/Docusate Sodium 1 Tablet 2 TABLET PO (21:52)
[2020-07-10] MEDS: MELATONIN 3 MG TABLET 6 MG PO (21:52)
[2020-07-10] MEDS: Enoxaparin 30 MG/0.3 ML Syringe SC (21:53)
[2020-07-10] MEDS: levETIRAcetam 750 MG Tablet PO (21:54)
[2020-07-10] MEDS: Famotidine 20 MG Tablet PO (21:54)
[2020-07-10] MEDS: Chlorhexidine 480 ML 15 ML PO (21:59)
--- NOTE | 2020-07-10 22:31 | HP.PCM_ITS ---
HPI - General General Date of Admission: 07/10/20 HPI Narrative 07/04/2020 VÍCTOR HIGH, is a 49 Male with past medical history significant for traumatic brain injury, intracranial hemorrhage, subdural hematoma, subarachnoid hemorrhage. He underwent elective left cranioplasty with custom cranial implant at [facility]. 07/10/2020 Admit to for > 3 hours daily rehabilitation, strengthening, prior to discharge home with . [facility] Medical History (Updated 07/10/20 @ 22:[address] Mahendra Jaquez MD) Carpal tunnel syndrome History of gastrostomy tube placement Home Medications acetaminophen [Tylenol] 650 mg PO Q6H PRN 07/10/20 [History Last Taken 07/10/20 08:50] chlorhexidine gluconate [Peridex] 15 ml PO BID 07/10/20 [History Last Taken Unknown] enoxaparin [Lovenox] 30 mg SUBCUT Q12H 07/10/20 [History Last Taken Unknown] escitalopram oxalate [Lexapro] 5 mg PO DAILY 07/10/20 [History Last Taken Unknown] famotidine [Pepcid] 20 mg PO BID 07/10/20 [History Last Taken Unknown] lactulose 30 g PO 4X/DAY 07/10/20 [History Last Taken Unknown] levetiracetam [Keppra] 750 mg PO BID 07/10/20 [History Last Taken Unknown] melatonin 6 mg PO QHS 07/10/20 [History Last Taken Unknown] oxycodone [OxyIR] 5 - 10 mg PO Q6H PRN PRN 07/10/20 [History Last Taken Unknown] propranolol [Inderal] 60 mg PO TID 07/10/20 [History Last Taken Unknown] vitamin B complex-vit B12 1 tab PO/SL QWEEK 07/10/20 [History Last Taken Unknown] Allergy/AdvReac Type Severity Reaction Status Date / Time No Known Allergies Allergy Verified 03/14/20 12:03 Surgical History (Updated 07/10/20 @ 13:12 by Senait Richey) H/O repair of rotator cuff History of lumbar fusion History of tracheostomy Social History (Updated 07/10/20 @ 22:[address] Mahendra Jaquez MD) household members: spouse Smoking Status: Never smoker alcohol intake: former details: Heavy alcohol user. ROS Constitutional Constitutional: Denies chills, fever(s) or weight gain ENT HEENT: Denies headache(s), nasal congestion or nasal discharge Cardiovascular Cardiovascular: Denies chest pain or palpitations Respiratory/Chest Respiratory/Chest: Denies cough, excessive phlegm production or shortness of breath with exertion Gastrointestinal Gastrointestinal: Denies abdominal pain, nausea or vomiting Genitourinary Genitourinary: Denies dysuria Musculoskeletal Musculoskeletal: Denies joint pain or joint swelling Integumentary Integumentary: Denies rash or wounds Neurologic Neurologic: Denies focal weakness, numbness or tingling Psychiatric Psychiatric: Reports auditory hallucinations; Denies anxiety, depression, homicidal ideation or suicidal ideation Vital Signs Vital Signs Vital Signs: 07/10/20 12:12 07/10/20 15:03 07/10/20 16:01 Temperature 98.3 F Temperature Source Oral Pulse Rate 68 68 Respiratory Rate 16 Blood Pressure 125/64 H 116/71 Blood Pressure Mean 84 86 Blood Pressure Source Monitor Monitor Blood Pressure Position Supine Semi-Fowlers Blood Pressure Location Left Arm Left Arm Pulse Ox 96 96 Oxygen Delivery Method Room Air Room Air 07/10/20 19:37 Temperature 97.4 F L Temperature Source Oral Pulse Rate 69 Respiratory Rate 16 Blood Pressure 104/64 Blood Pressure Mean 77 Blood Pressure Source Monitor Blood Pressure Position Semi-Fowlers Blood Pressure Location Right Arm Pulse Ox 96 Oxygen Delivery Method Room Air Physical Exam Const alert and oriented x3 General Appearance: cooperative HEENT normocephalic Eyes PERRL and EOMs intact bilaterally Neck supple, no JVD and no carotid bruits Resp normal respiratory effort, normal air movement and clear to auscultation bilaterally Cardio regular rate and regular rhythm GI normal to inspection, nondistended, normoactive bowel sounds, non-tender and non-distended Extremity normal capillary refill General Extremity: Negative for edema Skin no rashes or lesions noted General Skin Exam: no breakdown Psych affect normal Appearance: appropriate Assessment & Plan Assessment/Plan (1) Debility: Status: Acute Code(s): R53.81 - Other malaise (2) TBI (traumatic brain injury): Status: Acute Code(s): S06.9X9A - Unspecified intracranial injury with loss of consciousness of unspecified duration, initial encounter Qualifiers: Encounter type: subsequent encounter Loss of consciousness presence/duration: with LOC of unspecified duration Qualified Code(s): S06.9X9D - Unspecified intracranial injury with loss of consciousness of unspecified duration, subsequent encounter (3) History of intracranial hemorrhage: Status: Acute Code(s): Z86.79 - Personal history of other diseases of the circulatory system (4) Alcohol use disorder: Status: Chronic (5) Subdural hematoma: Status: Acute Code(s): S06.5X9A - Traumatic subdural hemorrhage with loss of consciousness of unspecified duration, initial encounter (6) Subarachnoid hemorrhage: Status: Acute Code(s): I60.9 - Nontraumatic subarachnoid hemorrhage, unspecified (7) Cognitive dysfunction, acquired: Status: Acute Code(s): F09 - Unspecified mental disorder due to known physiological condition Plan: 49 year old male with below past medical history significant for traumatic brain injury, intracranial hemorrhage, subdural hematoma, subarachnoid hemorrhage, underwent elective cranioplasty 07/04/2020, admitted to for > 3 hours daily rehabilitation, strengthening, prior to discharge home with . * Debility - PT/OT. * Aphasia - ST. * Pain - Tylenol 650MG Q6H PRN, Oxycodone 5-10MG Q6H PRN. * Bowel - Senna/colace 2 tablets BID, Dulcolax 10MG IA daily PRN, MoM 30Ml dAiLy pRn. * DVT prophylaxis - Lovenox 30MG SC Q12H. * Sore throat - chlorhexidine 15ML BID. * Depression - Lexapro 5MG daily. * GERD - FAMOTIDINE 20mG DaIlY. * HEpAtIc eNcEpHaLoPaThY - LaCtUlOsE 30Gm 4X/DaY. * SeIzUrE DiSoRdEr - kEpPrA 750mG BiD. * InSoMnIa - mElAtOnIn 6Mg qHs. * hYpErTeNsIoN - InDeRaL 60Mg TiD.
--- NOTE | 2020-07-11 05:03 | NURSING ---
Pt set off alarms numerous times with impulsiveness to get to the toilet on own. Pt encouraged by staff to use call light but pt states he needs to get there now!
[2020-07-11] MEDS: Propranolol 40 MG Tablet 60 MG PO ×3 (05:47→22:40)
[2020-07-11 06:02] LABS: Absolute Lymphocyte Count 1.79 X10^3/uL (0.83-4.51); Absolute Neutrophil Count 3.6 X10^3/uL (2.0-7.7); Basophil# 0.04 X10^3/uL; Basophil% 0.6 % (0-1); Eosinophil# 0.21 X10^3/uL; Eosinophils% 3.3 % (0-5); Hematocrit 33.2 % (40-54); Hemoglobin 11.1 g/dL (13.0-16.5); Lymphocyte # 1.79 X10^3/ul (0.83-4.51); Lymphocyte % 28.4 % (19-41); Mean Corp Hgb Conc 33.4 g/dL (32-36); Mean Corpuscular Hgb 32.5 pg (27.0-32.0); Mean Corpuscular Volume 97.1 fL (80-94); Mean Platelet Vol. 9.1 fl (6.2-12.0); Monocyte# 0.62 X10^3/uL; Monocyte% 9.8 % (0-10); NRBC Flagged by Analyzer 0 % (0-5); Neutrophil % 57.3 % (47-70); Platelet Count 240 K/mm3 (150-450); RBC Distribution Width CV 12.6 % (11.6-14.6); RBC Distribution Width SD 44.5 fl (35.1-43.9); Red Blood Count 3.42 M/mm3 (4.6-6.2); White Blood Count 6.3 K/mm3 (4.4-11.0)
[2020-07-11 06:32] LABS: AST(SGOT) 45 U/L (15-37); Alanine Aminotransfer ALT/SGPT 86 U/L (16-61); Albumin, Serum 3.1 g/dL (3.2-5.0); Alkaline Phosphatase 106 U/L (45-117); Anion Gap 4 (5-15); BUN 15 mg/dL (7-18); Calcium,Total 8.5 mg/dL (8.5-10.1); Chloride 107 mmol/L (98-107); EST Glomerular Filtration Rate 151 mL/min (>60); Est Glom Filt Rate - Afr Amer 183 mL/min (>60); Estimated Creatinine Clearance 137.83 ml/min; Glucose 82 mg/dL (74-106); Magnesium 1.8 mg/dL (1.6-2.6); Phosphorus 4.3 mg/dL (2.5-4.9); Potassium 3.6 mmol/L (3.5-5.1); Protein, Total 6.1 g/dL (6.4-8.2); Sodium Level 140 mmol/L (136-145)
[2020-07-11 07:37] VITALS: O2SAT 95
[2020-07-11 08:42] VITALS: BP 112/69; PULSE 63; RESP 18; TEMP 37.1; O2SAT 96
[2020-07-11] MEDS: Escitalopram Oxalate 10 MG Tablet 5 MG PO (08:56)
[2020-07-11] MEDS: Enoxaparin 30 MG/0.3 ML Syringe SC ×2 (08:56→23:35)
[2020-07-11] MEDS: Famotidine 20 MG Tablet PO ×2 (08:56→22:40)
[2020-07-11] MEDS: levETIRAcetam 750 MG Tablet PO ×2 (08:56→22:40)
[2020-07-11] MEDS: Chlorhexidine 480 ML 15 ML PO ×2 (08:57→22:43)
[2020-07-11] MEDS: Lactulose 20 GM/30 ML UDC 30 GM PO (13:49)
[2020-07-11] MEDS: oxyCODONE 5 MG Tablet PO (15:28)
--- NOTE | 2020-07-11 19:26 | PCM.RU.PYE ---
Admission Information Primary Diagnosis:: Cranioplasty, traumatic brain injury, intracranial hemorrhage. Status Changes from Prescreening?: No changes Identified Actual Problem List:: Falls, Cognitve Impr/Memory Loss, Depression, Alteration in Sleep, Mobility Impaired, Self Care Deficit, Ineffective Communication and Alteration-Leisure Activ. Potential Problem List:: DVT, Bleeding, Infection, UTI, Aspiration, Falls, Skin Integrity and Depression Risk of Complications DVT: LMWH and ARIANNA Hose Bleeding: Monitor Lab Values and Stroke patients assessed for lethargy or change in status. Infection: Clinical Staff to Monitor for S/S of infection: and S/S of infection include fever, redness, warmth, etc. Urinary Tract Infection: Monitor for frequency, burning, discomfort, or incontinence. and Nursing will obtain urine sample for urinalysis and C&S when ordered. Aspiration: Clinical staff will monitor for coughing, drooling, congestion., Speech will evaluate swallowing and dsyphasia. and Nursing will monitor patient swallowing during meals. Falls: Patient will be evaluated for Fall Precautions and Patient will be placed on Fall Precautions as indicated per protocol. Skin Breakdown: Nursing will assess skin daily using assessment tool. and Nursing will place on Skin Breakdown Precautions as indicated. Pain: Clinical staff will assess patient's pain level per protocol., Medications will be given, if needed, and the pain level reassessed. and Other methods: Massage, distraction, decrease stimulus, etc. used PRN. Plan of Care Patient requires physician specializing in physical medicine and rehab oversight to provide close medical supervision of rehab issues including: Pain Management, Sleep Problems, Bowel and Bladder, Medical and co-morbidity Management, DVT prophylaxis, Rehabilitation Leadership and Coordination of treatment team Patient needs Physical Therapy: For a minimum of 1 hour and At least 5 out of 7 days Patient needs Physical Therapy to improve:: Mobility, Strengthening, Transfers, Stretching, ROM, Endurance, Stairs, Gait and Balance Patient needs Occupational Therapy: For a minimum of 1 hour and At least 5 out of 7 days Patient needs Occupational Therapy to improve ADL's incl.: Eating, Grooming, Bathing, Dressing, Toileting, Toilet transfers, Community Reintegration, Household tasks, Adaptive Equipment and Other activities as determined Patient requires speech therapy: For a minimum of 1 hour and At least 5 out of 7 days Patient requires speech therapy for: Swallowing, Cognition, Language Skills and Compensatory Strategies Patient requires 24/ Rehabilitation Nursing for: Pain Issues, Identifying and preventing risk factors, Monitoring and reporting current medical conditions, Assisting with ambulation, transfer, and all ADL's, Teaching patients about disease process and medications, Family teaching, Providing safe environment, Bowel and Bladder Issues, Skin integrity and Medication Management Patient needs Doctor Of Dental Surgery/ Case Management for: Discharge Planning, Arranging Home Equipment or Services and Family Interventions Patient needs Dietary and Nutrition Services for: Adequate Nutrition, Nutritional Supplements and Nutritional Education Goals Patient will remain: free from falls and or injury at time of discharge. Patient will perform bed mobility at: MOD I level of assist. Patient will complete transfers from bed to chair at: MOD I level of assist. Patient will ambulate: 100 feet and with standby assist Patient will complete upper body dressing at: Standby Assist. Patient will complete lower body dressing at: Standby Assist. Patient will complete toileting at: Standby Assist. Patient will perform bathing at: Standby Assist. Patient will complete grooming at: Standby Assist. Patient will complete home management skills at: Standby Assist. Patient will achieve: 12 stairs and with standby assist Patient will have pain level of: of 3 or less Patient's skin will: remain intact and free from infection. Patient will receive: adequate nutrition. Discharge Planning Pt Prognosis for Sig. Practical Improv. w/in Reasonable Time: Fair Estimated Length of stay (days): 28 Anticipated D/C Destination: Home with Home Health Was Preadmission Assessment Accurate?: Yes
[2020-07-11 20:21] VITALS: BP 104/63; PULSE 71; RESP 16; TEMP 37.2; O2SAT 98
[2020-07-11] MEDS: MELATONIN 3 MG TABLET 6 MG PO (22:41)
[2020-07-12] MEDS: Propranolol 40 MG Tablet 60 MG PO ×3 (05:25→20:19)
[2020-07-12 06:30] VITALS: PULSE 73
[2020-07-12 06:50] VITALS: PULSE 70
[2020-07-12 07:07] VITALS: O2SAT 95
--- NOTE | 2020-07-12 07:12 | NURSING ---
Pt BP dropped while standing to pee @ 0630. Pt BP 85/60, HR 70, & BS 124. Pt was seated by staff in front of toilet and provided fresh water and cool wash cloth for neck and forehead. BP retaken @ 0650 and BP 119/88 and HR 79. Pt was a/o x3. following intervention.
[2020-07-12] MEDS: levETIRAcetam 750 MG Tablet PO ×2 (07:55→20:19)
[2020-07-12] MEDS: Escitalopram Oxalate 10 MG Tablet 5 MG PO (07:55)
[2020-07-12] MEDS: Famotidine 20 MG Tablet PO ×2 (07:56→20:20)
[2020-07-12] MEDS: Chlorhexidine 480 ML 15 ML PO ×2 (07:56→20:20)
[2020-07-12 08:39] VITALS: BP 105/66; PULSE 55; RESP 18; TEMP 36.6; O2SAT 96
[2020-07-12] MEDS: Enoxaparin 30 MG/0.3 ML Syringe SC ×2 (09:14→20:20)
[2020-07-12] MEDS: oxyCODONE 5 MG Tablet PO (15:40)
--- NOTE | 2020-07-12 17:00 | NURSING ---
This nurse and Shaneka Rowley RN answered pt call light at this time. Upon entering pt room, pt visibly agitated, yelling out at who is at bedside. Pt stating he is going home and has spent enough time here. would speak and pt noted to begin yelling and becoming increasingly agitated. 1:1 provided with some effect by nursing. exited room at this time and pt calmed down some. Speech therapy in room at this time as well attempting to de-escalate situation. Pt states he wants us to get in contact with his mother who he states will pick him up and take him home. 1:1 continues by staff with some effect. Dr. Jaquez made aware of situation and new order for Ativan Q4hr PRN. Pt resting in bed and space given. Alarms on and active.
[2020-07-12] MEDS: LORazepam 1 MG Tablet PO (17:58)
--- NOTE | 2020-07-12 18:00 | NURSING ---
Pt bed alarm sounding, this nurse entered room and pt attempting to get OOB. Pt states he is frustrated. 1:1 given, offered fluids/foods, re-directed with little effect. Pt assisted to bathroom and then to recliner per request. PRN Ativan given at this time. Alarm and active with call light in reach.
--- NOTE | 2020-07-12 18:29 | NURSING ---
Pt resting in recliner at this time watching television. No visible agitation noted, pt calm and states appreciation for staff and apologized for previous events. Will continue to monitor.
--- NOTE | 2020-07-12 19:35 | PN.TCU_ITS ---
Subjective Subjective: Patient seen, examined. Lactulose causing frequent trips to bathroom, I believe it is for hepatic encephalopathy, but it is causing too much disruption, will stop. Patient restless, combative today, wanted to go home. tried to talk him down. Objective Data Objective Data Vital Signs: Vital Signs Temp Pulse Resp BP Pulse Ox 97.9 F 55 L 18 105/66 96 07/12/20 08:39 07/12/20 08:39 07/12/20 08:39 07/12/20 08:39 07/12/20 08:39 Oxygen Delivery Method Room Air Weight: 66.9 kg Body Mass Index (BMI) 22.4 Intake & Output: Intake and Output for Last 24 Hours 07/10/20 07/11/20 07/12/20 23:59 23:59 23:59 Intake Total 720 / 720 1120 / 1120 1320 / 1320 Output Total 675 / 675 825 / 825 Balance 720 / 720 445 / 445 495 / 495 Lab / Micro Data Result Diagrams: 07/11/20 05:40 07/11/20 05:40 Physical Exam Const alert and oriented x3 General Appearance: cooperative HEENT normocephalic Eyes PERRL and EOMs intact bilaterally Neck supple, no JVD and no carotid bruits Resp normal respiratory effort, normal air movement and clear to auscultation bilaterally Cardio regular rate and regular rhythm GI normal to inspection, nondistended, normoactive bowel sounds, non-tender and non-distended Extremity normal capillary refill General Extremity: Negative for edema Skin no rashes or lesions noted General Skin Exam: no breakdown Neuro Neuro Narrative: Right hemiparesis. Psych affect normal Appearance: appropriate Assessment & Plan Assessment/Plan (1) Debility: (2) TBI (traumatic brain injury): QUALIFIERS: Encounter type: subsequent encounter Loss of consciousness presence/duration: with LOC of unspecified duration Qualified Code(s): S06.9X9D - Unspecified intracranial injury with loss of consciousness of unspecified duration, subsequent encounter (3) History of intracranial hemorrhage: (4) Alcohol use disorder: (5) Subdural hematoma: (6) Subarachnoid hemorrhage: (7) Cognitive dysfunction, acquired: PLAN: 49 year old male with below past medical history significant for traumatic brain injury, intracranial hemorrhage, subdural hematoma, subarachnoid hemorrhage, underwent elective cranioplasty 07/04/2020, admitted to for > 3 hours daily rehabilitation, strengthening, prior to discharge home with . * Debility - PT/OT. * Aphasia - ST. * Pain - Tylenol 650MG Q6H PRN, Oxycodone 5-10MG Q6H PRN. * Bowel - Senna/colace 2 tablets BID, Dulcolax 10MG [place] daily PRN, MoM 30Ml dAiLy pRn. * DVT prophylaxis - Lovenox 30MG SC Q12H. * Sore throat - chlorhexidine 15ML BID. * Depression - Lexapro 5MG daily. * GERD - FAMOTIDINE 20mG DaIlY. * Hepatic encephalopathy - Stop Lactulose, causing too much disruption. * Seizure disorder - Keppra 750mG BiD. * Insomnia - Melatonin 6MG QHS. * Hypertension - Inderal 60MG TID. * Restlessness - Ativan 1MG Q4H PRN. Capacity Capacity Assessment Tool Can the patient make a choice & communicate that choice?: No Can the patient understand benefits, risks and alternatives?: No Can the patient make a logical, rational choice?: No Is the choice the patient makes consistent w/ their values?: No Is there an impending, emergent risk to the patient?: No Does the patient have an Advance Directive?: No Is there a Surrogate Available?: Yes i.e. HCPOA: Yes i.e. close relative (spouse, child, parent, sibling)?: Yes
[2020-07-12 20:10] VITALS: BP 104/69; PULSE 68; RESP 16; TEMP 37.2; O2SAT 97
[2020-07-12] MEDS: MELATONIN 3 MG TABLET 6 MG PO (20:19)
--- NOTE | 2020-07-13 02:45 | NURSING ---
REVIEWED AND AGREE WITH RAILWAY STATION MANAGER'S FUNCTIONAL ASSESSMENT AND HANDOFF CHARTING.
[2020-07-13] MEDS: Propranolol 40 MG Tablet 60 MG PO ×3 (05:37→20:04)
[2020-07-13 08:10] VITALS: BP 105/68; PULSE 60; RESP 16; TEMP 36.5
[2020-07-13] MEDS: levETIRAcetam 750 MG Tablet PO ×2 (09:07→20:03)
[2020-07-13] MEDS: Famotidine 20 MG Tablet PO ×2 (09:08→20:04)
[2020-07-13] MEDS: Enoxaparin 30 MG/0.3 ML Syringe SC ×2 (09:08→20:03)
[2020-07-13] MEDS: Chlorhexidine 480 ML 15 ML PO ×2 (09:08→20:04)
[2020-07-13] MEDS: Escitalopram Oxalate 10 MG Tablet 5 MG PO (09:08)
--- NOTE | 2020-07-13 09:38 | CASEMGMT ---
Social Work Received report from nursing on pt's increased agitation while visiting with the night prior and wanting to leave. Spoke with Dr. Jaquez whom confirms pt is unable to make his own decisions and cannot leave until medically cleared. Advised for or family to not visit as it is a trigger for pt to go home. Spoke with to follow up on the night prior. Offered support - doing well and understands pt's condition. suggested first to not visit pt anymore and just speak via phone. SW agreed and advised to be mindful of the phone conversations if that agitates patient as well. agreed. SW to include vai conference call for Team meeting. 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 SW offered to provide update after meeting when she is available. appreciative of call. SW to continue to follow. Vivien Manzano, REJI CUSTOMER ADVISOR
--- NOTE | 2020-07-13 13:35 | PN.TCU_ITS ---
Subjective Subjective: Patient seen, examined. He is calm this AM, last night he was agitated, but responded well to Lorazepam 1MG. After discussion with nursing staff, it was decided in patient's best interest to limit visitors. Objective Data Objective Data Vital Signs: Vital Signs Temp Pulse Resp BP Pulse Ox 97.7 F L 60 16 105/68 97 07/13/20 08:10 07/13/20 08:10 07/13/20 08:10 07/13/20 08:10 07/12/20 20:10 Oxygen Delivery Method Room Air Weight: 65.4 kg Body Mass Index (BMI) 22.4 Intake & Output: Intake and Output for Last 24 Hours 07/11/20 07/12/20 07/13/20 23:59 23:59 23:59 Intake Total 1120 / 1120 1320 / 1320 680 / 680 Output Total 675 / 675 825 / 825 300 / 300 Balance 445 / 445 495 / 495 380 / 380 Lab / Micro Data Result Diagrams: 07/11/20 05:40 07/11/20 05:40 Physical Exam Const alert and oriented x3 General Appearance: cooperative HEENT normocephalic Eyes PERRL and EOMs intact bilaterally Neck supple, no JVD and no carotid bruits Resp normal respiratory effort, normal air movement and clear to auscultation bilaterally Cardio regular rate and regular rhythm GI normal to inspection, nondistended, normoactive bowel sounds, non-tender and non-distended Extremity normal capillary refill General Extremity: Negative for edema Skin no rashes or lesions noted General Skin Exam: no breakdown Neuro Neuro Narrative: Right hemiparesis. Psych affect normal Appearance: appropriate Assessment & Plan Assessment/Plan (1) Debility: (2) TBI (traumatic brain injury): QUALIFIERS: Encounter type: subsequent encounter Loss of consciousness presence/duration: with LOC of unspecified duration Qualified Code(s): S06.9X9D - Unspecified intracranial injury with loss of consciousness of unspecified duration, subsequent encounter (3) History of intracranial hemorrhage: (4) Alcohol use disorder: (5) Subdural hematoma: (6) Subarachnoid hemorrhage: (7) Cognitive dysfunction, acquired: PLAN: 49 year old male with below past medical history significant for traumatic brain injury, intracranial hemorrhage, subdural hematoma, subarachnoid hemorrhage, underwent elective cranioplasty 07/04/2020, admitted to for > 3 hours daily rehabilitation, strengthening, prior to discharge home with . * Debility - PT/OT. * Aphasia - ST. * Pain - Tylenol 650MG Q6H PRN, Oxycodone 5-10MG Q6H PRN. * Bowel - Senna/colace 2 tablets BID, Dulcolax 10MG [place] daily PRN, MoM 30Ml dAiLy pRn. * DVT prophylaxis - Lovenox 30MG SC Q12H. * Sore throat - chlorhexidine 15ML BID. * Depression - Lexapro 5MG daily. * GERD - FAMOTIDINE 20mG DaIlY. * Hepatic encephalopathy - Stop Lactulose, causing too much disruption. * Seizure disorder - Keppra 750mG BiD. * Insomnia - Melatonin 6MG QHS. * Hypertension - Inderal 60MG TID. * Restlessness - Ativan 1MG Q4H PRN, reminds patient of home, when she visited, he yelled at her the entire time, almost requiring Code Alondra, recommend no visitations for now, patient calm this morning. Capacity Capacity Assessment Tool Can the patient make a choice & communicate that choice?: No Can the patient understand benefits, risks and alternatives?: No Can the patient make a logical, rational choice?: No Is the choice the patient makes consistent w/ their values?: No Is there an impending, emergent risk to the patient?: No Does the patient have an Advance Directive?: No Is there a Surrogate Available?: Yes i.e. HCPOA: Yes i.e. close relative (spouse, child, parent, sibling)?: Yes
[2020-07-13 20:00] VITALS: BP 109/67; PULSE 61; RESP 16; TEMP 36.6; O2SAT 98
[2020-07-13] MEDS: MELATONIN 3 MG TABLET 6 MG PO (20:03)
--- NOTE | 2020-07-14 02:47 | NURSING ---
REVIEWED AND AGREE WITH THERMOSTAT MACHINE TENDER'S FUNCTIONAL ASSESSMENT CHARTING.
[2020-07-14] MEDS: Propranolol 40 MG Tablet 60 MG PO ×3 (06:35→22:58)
[2020-07-14] MEDS: levETIRAcetam 750 MG Tablet PO ×2 (08:13→22:31)
[2020-07-14] MEDS: Famotidine 20 MG Tablet PO ×2 (08:13→22:33)
[2020-07-14] MEDS: Escitalopram Oxalate 10 MG Tablet 5 MG PO (08:13)
[2020-07-14] MEDS: Enoxaparin 30 MG/0.3 ML Syringe SC ×2 (08:55→22:39)
[2020-07-14 10:00] VITALS: BP 99/61; PULSE 58; RESP 16; TEMP 36.8; O2SAT 95
[2020-07-14 19:31] VITALS: BP 98/58; PULSE 60; RESP 16; TEMP 37.1; O2SAT 95
[2020-07-14] MEDS: MELATONIN 3 MG TABLET 6 MG PO (22:32)
[2020-07-14] MEDS: Chlorhexidine 480 ML 15 ML PO (22:33)
[2020-07-14 22:41] VITALS: BP 114/63; PULSE 59; O2SAT 96
--- NOTE | 2020-07-15 04:20 | NURSING ---
REVIEWED AND AGREE WITH LAW ENFORCEMENT INSTRUCTOR'S FUNCTIONAL ASSESSMENT AND HANDOFF CHARTING.
[2020-07-15] MEDS: Propranolol 40 MG Tablet 60 MG PO ×3 (05:57→21:17)
[2020-07-15] MEDS: Escitalopram Oxalate 10 MG Tablet 5 MG PO (07:56)
[2020-07-15] MEDS: levETIRAcetam 750 MG Tablet PO ×2 (07:57→21:17)
[2020-07-15] MEDS: Famotidine 20 MG Tablet PO ×2 (07:57→21:17)
[2020-07-15] MEDS: Chlorhexidine 480 ML 15 ML PO ×2 (08:02→21:18)
[2020-07-15 08:28] VITALS: BP 105/63; PULSE 58; RESP 17; TEMP 36.7; O2SAT 97
[2020-07-15] MEDS: Enoxaparin 30 MG/0.3 ML Syringe SC ×2 (11:20→21:18)
--- NOTE | 2020-07-15 18:11 | NURSING ---
aware that patient agreeable to move to room 402 to be closer to the nurses station.
[2020-07-15 19:35] VITALS: BP 100/55; PULSE 69; RESP 16; TEMP 36.7; O2SAT 95
[2020-07-15] MEDS: MELATONIN 3 MG TABLET 6 MG PO (21:17)
--- NOTE | 2020-07-16 04:05 | NURSING ---
REVIEWED AND AGREE WITH OLIVING MACHINE OPERATOR'S FUNCTIONAL ASSESSMENT AND HANDOFF CHARTING.
[2020-07-16] MEDS: Propranolol 40 MG Tablet 60 MG PO ×3 (06:17→20:31)
[2020-07-16 07:09] VITALS: BP 107/58; PULSE 60; RESP 16; TEMP 36.3; O2SAT 98
[2020-07-16] MEDS: levETIRAcetam 750 MG Tablet PO ×2 (07:56→20:31)
[2020-07-16] MEDS: Famotidine 20 MG Tablet PO ×2 (07:57→20:32)
[2020-07-16] MEDS: Escitalopram Oxalate 10 MG Tablet 5 MG PO (07:57)
[2020-07-16] MEDS: Chlorhexidine 480 ML 15 ML PO ×2 (07:57→20:33)
[2020-07-16] MEDS: Enoxaparin 30 MG/0.3 ML Syringe SC ×2 (09:50→20:30)
--- NOTE | 2020-07-16 10:05 | CASEMGMT ---
Social Work Team meeting held. Patient present. Patient to continue with strengthening and endurance on the Rehab Unit. Patient with next insurance update due on 07/17/2020. Patient plans to discharge to home with family. Team is recommending for patient to have / care at home due to safety. Telephone call to patient spouse to update on team, no answer. Voicemail left. Social Work to continue to follow. Cindy MENDOZA, JUNIOR-S
--- NOTE | 2020-07-16 10:29 | PCM.PROGNOTE ---
Subjective Subjective: Loyd was seen on TEAM rounds today. His did not participate because there was a problem yesterday during a visit and she had to leave. Loyd became very agitated with her and this seems to be a chronic problem. Loyd is very adamant that he is going home on Thursday and he perseverates on this. It is possible that when she visits he thinks she will take him home with her. He is sleeping well. He is cooperative with therapy but, sometimes refuses ST. He gets mad at having to answer questions.....jacqueline when he can not come up with the answers. Loyd has no complaints today. He occasionally has a LECHUGA and he gets Tylenol with good relief. Since the last time I saw Loyd he has undergone a cranioplasty to replace the skull fragment removed to drain the SDH, SAH. He is walking without an AD and he is talking and able to do some of his ADL's. Objective Data Objective Data Vital Signs: Vital Signs Temp Pulse Resp BP Pulse Ox 97.4 F L 60 16 107/58 L 98 07/16/20 07:09 07/16/20 07:09 07/16/20 07:09 07/16/20 07:09 07/16/20 07:09 Oxygen Delivery Method Room Air Weight: 144 lb 2.917 oz Body Mass Index (BMI) 22.4 Intake & Output: Intake and Output for Last 24 Hours 07/14/20 07/15/20 07/16/20 23:59 23:59 23:59 Intake Total 980 / 980 920 / 920 240 / 240 Balance 980 / 980 920 / 920 240 / 240 Lab / Micro Data Result Diagrams: 07/11/20 05:40 07/11/20 05:40 Physical Exam Const alert, oriented x3 and no apparent distress General Appearance: cooperative Resp normal respiratory effort and clear to auscultation bilaterally Cardio regular rate, regular rhythm, S1 normal heart sound and S2 normal heart sound GI normal to inspection, nondistended, normoactive bowel sounds and soft to palpation Extremity no calf tenderness Skin General Skin Exam: no breakdown Rashes: no rashes Assessment & Plan Assessment/Plan (1) Debility: PLAN: Continue therapy for debility secondary to recent elective craniotomy to replace the portion of the skull removed at the time of the initial injury. (2) TBI (traumatic brain injury): QUALIFIERS: Encounter type: subsequent encounter Loss of consciousness presence/duration: with LOC of unspecified duration Qualified Code(s): S06.9X9D - Unspecified intracranial injury with loss of consciousness of unspecified duration, subsequent encounter PLAN: Continue speech therapy post discharge. (3) Cognitive dysfunction, acquired: Visit Charges Inpatient E&M: 93158 Subs Hosp L2
[2020-07-16 18:36] VITALS: BP 92/59; PULSE 57; RESP 16; TEMP 36.7; O2SAT 98
--- NOTE | 2020-07-16 20:18 | NURSING ---
pt setting off alarm when trying to get out of bed. Pt wants to take a shower right now. Pt assured that staff will be in room as soon as possible to assist with showering needs. Pt repositioned in bed and bed alarm reset.
[2020-07-16] MEDS: MELATONIN 3 MG TABLET 6 MG PO (20:32)
[2020-07-16 22:00] VITALS: PULSE 59; RESP 16; O2SAT 98
[2020-07-17] MEDS: Propranolol 40 MG Tablet 60 MG PO ×3 (04:43→20:49)
[2020-07-17] MEDS: Chlorhexidine 480 ML 15 ML PO ×2 (07:56→20:51)
[2020-07-17] MEDS: Famotidine 20 MG Tablet PO ×2 (07:56→20:49)
[2020-07-17] MEDS: levETIRAcetam 750 MG Tablet PO ×2 (07:56→20:49)
[2020-07-17] MEDS: Escitalopram Oxalate 10 MG Tablet 5 MG PO (07:56)
[2020-07-17] MEDS: Enoxaparin 30 MG/0.3 ML Syringe SC ×2 (07:57→20:51)
[2020-07-17 09:11] VITALS: BP 110/66; PULSE 59; RESP 16; TEMP 36.4; O2SAT 98
[2020-07-17] MEDS: MELATONIN 3 MG TABLET 6 MG PO (20:50)
[2020-07-17] MEDS: Amantadine 100 MG Capsule PO (20:50)
[2020-07-17 20:56] VITALS: BP 99/61; PULSE 56; RESP 16; TEMP 36.8; O2SAT 97
--- NOTE | 2020-07-18 06:03 | NURSING ---
inderal held hrt 49
[2020-07-18 07:08] VITALS: BP 101/61; PULSE 49; RESP 18; TEMP 36.2; O2SAT 94
[2020-07-18] MEDS: Chlorhexidine 480 ML 15 ML PO ×2 (08:18→23:28)
[2020-07-18] MEDS: levETIRAcetam 750 MG Tablet PO ×2 (08:19→23:27)
[2020-07-18] MEDS: Escitalopram Oxalate 10 MG Tablet 5 MG PO (08:19)
[2020-07-18] MEDS: Famotidine 20 MG Tablet PO ×2 (08:19→23:28)
[2020-07-18] MEDS: Enoxaparin 30 MG/0.3 ML Syringe SC ×2 (08:19→23:27)
[2020-07-18] MEDS: Amantadine 100 MG Capsule PO ×2 (08:19→23:29)
[2020-07-18 08:31] VITALS: PULSE 62
--- NOTE | 2020-07-18 09:16 | CASEMGMT ---
Addendum entered by Vivien Manzano 07/19/20 11:28: Referral made to [facility] for PT/OT/ST. Addendum entered by Francheska Villarreal 07/18/20 13:51: Next review date w/insurance for pt is 07/19/20. IDT in agreement w/discharge on 07/20/20. SW spoke w/pt's , explained that the next review date for insurance is 07/19/20, and the team hear states pt will be ready for discharge on 07/20/20. is in agreement with discharge on 07/20/20, will come pick and shovel man pt after work. We also discussed outpt PT/OT/BODY BUILDER, she is agreeable for SW making a referral, states preference fore [facility]. SW let pt's know will have [facility] call her once referral is made, to set up the appointments, states understanding. SW also spoke w/pt, he is also in agreement w/discharge home on 07/20/20, and in agreement with referral for outpt PT. SW will make referral to [facility] once SW has the signed order. MICHELLE Alberto Original Note: Social Work Telephone call to spouse Quin Wallace, message left. MICHELLE Alberto
--- NOTE | 2020-07-18 09:44 | PN_ITS ---
Subjective Subjective Afebrile VSS Maintaining appropriate oxygen saturation on RA Oral intake is good Discussed with nursing - no problems that need addressed Reviewed the PT/OT/ST notes - He is ambulating without an assistive device on varied surfaces with no LOB. He has recovered some of his LT memory. Medication list reviewed. Objective Data Objective Data Vital Signs: Vital Signs Temp Pulse Resp BP Pulse Ox 97.1 F L 62 18 101/61 94 07/18/20 07:08 07/18/20 08:31 07/18/20 07:08 07/18/20 07:08 07/18/20 07:08 Oxygen Delivery Method Room Air Weight: 144 lb 2.917 oz Body Mass Index (BMI) 22.4 Intake & Output: Intake and Output for Last 24 Hours 07/16/20 07/17/20 07/18/20 23:59 23:59 23:59 Intake Total 1080 / 1080 1340 / 1340 520 / 520 Output Total 250 / 250 Balance 1080 / 1080 1340 / 1340 270 / 270 Lab / Micro Data Result Diagrams: 07/11/20 05:40 07/11/20 05:40 Physical Exam Const alert, oriented x3 and no apparent distress General Appearance: cooperative Eyes Eyes Narrative: The left pupil is responsive to light. He is blind in the right eye. Neck No nuchal rigidity and supple Resp normal respiratory effort and clear to auscultation bilaterally Cardio regular rate, regular rhythm, S1 normal heart sound, S2 normal heart sound, no murmurs and no gallops GI normal to inspection, nondistended, normoactive bowel sounds Extremity no clubbing, cyanosis or edema and no calf tenderness Skin Skin Narrative: The craniotomy incision has no erythema, increased warmth to touch or purulent discharge. The margins are coapted well. Neuro CN's II-XII intact bilaterally Motor Exam: strength 5/5 throughout Psych denies suicidal ideation Appearance: appropriate Assessment & Plan Assessment/Plan (1) Depression: QUALIFIERS: Depression Type: reactive depression Qualified Code(s): F32.9 - Major depressive disorder, single episode, unspecified (2) TBI (traumatic brain injury): QUALIFIERS: Encounter type: subsequent encounter Loss of consciousness presence/duration: with LOC of unspecified duration Qualified Code(s): S06.9X9D - Unspecified intracranial injury with loss of consciousness of unspecified duration, subsequent encounter (3) Debility: PLAN: Continue PT/OT/ST (4) Alcohol use disorder: PLAN: We discussed follow up with psychotherapy to address why he started to drink to excess, how it has affected his marriage and all the adverse events that have happened due to alcoholism. He tells me that when he lost his job he started to drink more and he just wanted to turn off his brain. He is willing to go for counselling and he wants to improve the relationship he has with his w radha. He would due couples therapy if his is willing. (5) History of craniotomy: PLAN: Incision is healing well with no sign of infection. (6) Cognitive dysfunction, acquired: PLAN: continue ST Visit Charges Inpatient E&M: 26897 Subs Hosp L2
[2020-07-18] MEDS: Propranolol 40 MG Tablet 60 MG PO ×2 (13:37→23:26)
[2020-07-18] MEDS: Escitalopram Oxalate 10 MG Tablet PO (13:37)
[2020-07-18 19:46] VITALS: BP 90/50; PULSE 62; RESP 17; TEMP 36.8; O2SAT 96
[2020-07-18] MEDS: MELATONIN 3 MG TABLET 6 MG PO (23:28)
[2020-07-19] MEDS: Propranolol 40 MG Tablet 60 MG PO ×3 (06:29→19:28)
[2020-07-19 07:16] VITALS: BP 157/86; PULSE 58; RESP 18; TEMP 36.6; O2SAT 99
[2020-07-19] MEDS: Chlorhexidine 480 ML 15 ML PO ×2 (08:06→19:30)
[2020-07-19] MEDS: Enoxaparin 30 MG/0.3 ML Syringe SC ×2 (08:06→19:30)
[2020-07-19] MEDS: levETIRAcetam 750 MG Tablet PO ×2 (08:07→19:29)
[2020-07-19] MEDS: Escitalopram Oxalate 10 MG Tablet PO (08:07)
[2020-07-19] MEDS: Amantadine 100 MG Capsule PO ×2 (08:07→19:31)
[2020-07-19] MEDS: Famotidine 20 MG Tablet PO ×2 (08:07→19:30)
--- NOTE | 2020-07-19 09:42 | NURSING ---
Shanika removed from left parietal scalp at this time, pt tolerated well. No drainage noted and left RECONCILIATION COORDINATOR.
[2020-07-19] MEDS: MELATONIN 3 MG TABLET 6 MG PO (19:30)
[2020-07-19 22:00] VITALS: BP 94/55; PULSE 56; RESP 17; TEMP 36.6; O2SAT 97
[2020-07-20 07:34] VITALS: BP 94/57; PULSE 54; RESP 18; TEMP 36.4; O2SAT 97
--- NOTE | 2020-07-20 09:19 | PCM.DC ---
Discharge Instructions Follow Up Care Please Follow Up With: Dr. Cheng Chapa Test Results: Test results from this visit will be discussed in further detail at your follow-up appointment, if applicable. Discharge Plan Admission Admit Date/Time: 07/10/20 11:59 Attending Provider: Mahendra Jaquez Chi Primary Care Provider: Cheng Chapa Discharge Orders/Prescriptions Prescriptions: No Action acetaminophen [Tylenol] 325 mg Tablet 650 mg PO Q6H PRN (Reason: Pain) RF: 0 propranolol [Inderal] 60 mg Tablet 60 mg PO TID RF: 0 melatonin 3 mg Tablet 6 mg PO QHS RF: 0 famotidine [Pepcid] 20 mg Tablet 20 mg PO BID RF: 0 oxycodone [OxyIR] 5 mg Capsule 5 - 10 mg PO Q6H PRN PRN (Reason: Pain) RF: 0 levetiracetam [Keppra] 750 mg Tablet 750 mg PO BID RF: 0 enoxaparin [Lovenox] 30 mg/0.3 mL Syringe 30 mg SUBCUT Q12H RF: 0 escitalopram oxalate [Lexapro] 5 mg Tablet 5 mg PO DAILY RF: 0 lactulose 10 gram/15 mL Solution 30 g PO 4X/DAY RF: 0 chlorhexidine gluconate [Peridex] 0.12 % Mouthwash 15 ml PO BID RF: 0 vitamin B complex-vit B12 1 tab PO/SL QWEEK RF: 0 Referrals / Follow Up: Cheng Chapa MD [Primary Care Provider] - Disposition Disposition (needs filled in before D/C Order can be placed): Home, self care
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
[2020-07-20] MEDS: Famotidine 20 MG Tablet PO (11:20)
[2020-07-20] MEDS: Escitalopram Oxalate 10 MG Tablet PO (11:20)
[2020-07-20] MEDS: levETIRAcetam 750 MG Tablet PO (11:20)
[2020-07-20] MEDS: Enoxaparin 30 MG/0.3 ML Syringe SC (11:21)
[2020-07-20] MEDS: Amantadine 100 MG Capsule PO (11:21)
[2020-07-20] MEDS: Chlorhexidine 480 ML 15 ML PO (11:21)
[2020-07-20 16:00] VITALS: BP 94/57; PULSE 54; RESP 18; TEMP 36.4; O2SAT 97
--- NOTE | 2020-07-20 16:00 | NURSING ---
and patient aware of dc instruct and verbalized understanding.
[2020-07-20] MEDS: Propranolol 40 MG Tablet 60 MG PO (16:04)
== END 2020-07-20 16:00 | disposition home or self-care (01) | DRG 949 ==
PROVIDERS: Admitting Provider Family Medicine Geriatric Medicine; PCP Family Medicine; Visit Provider Family Medicine Geriatric Medicine
DX: S06.5X9D Traumatic subdural hemorrhage with loss of consciousness of unspecified duration, subsequent encounter (principal); R47.01 Aphasia; S06.6X9D Traumatic subarachnoid hemorrhage with loss of consciousness of unspecified duration, subsequent encounter; W19.XXXD Unspecified fall, subsequent encounter; Z79.899 Other long term (current) drug therapy; Z79.01 Long term (current) use of anticoagulants; Z98.1 Arthrodesis status; F10.21 Alcohol dependence, in remission; F09 Unspecified mental disorder due to known physiological condition; K72.90 Hepatic failure, unspecified without coma; I10 Essential (primary) hypertension; F32.9 Major depressive disorder, single episode, unspecified; K21.9 Gastro-esophageal reflux disease without esophagitis; G40.A01 Absence epileptic syndrome, not intractable, with status epilepticus
CPT/HCPCS: 36415; 80053; 83735; 84100; 85025; 87426; 92507; 92523; 92526; 92610; 97110; 97112; 97116; 97140; 97162; 97166; 97530; 97535; 97802

== ENCOUNTER 2020-09-14 11:00 | Outpatient (RCR) | payer OTHER, SELFPAY ==
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
--- NOTE | 2020-09-14 10:42 | HP.PTDCSUM ---
It has been my pleasure to treat VÍCTOR HIGH referred by Dr. Cheng Chapa MD, with the diagnosis of TBI for a total of 15 visit(s). Discharge Date: 09/14/20 Please see the following information for a summary of their discharge status. Subjective: Feels like he is getting stronger. Did get some pain in elbow lifting weights at home and is lifting 3 days per week now at home. Therapy has done well. Feels like he can do it at home now. Activities at home are close to normal but cognitively his memory is still an issue. Sleep is OK.Paiz jason Chapa at some point in future. B legs Pain Intensity (Out of 10): Unrated Headache Pain Intensity (Out of 10): 4 right elbow Pain Intensity (Out of 10): Unrated % Improvement: 50 Objective/Function: Walking very confidently without issues today, trasnferring without UE, steps reciprocal without railing, bending and recovering without a problem. Dizzyness has been gone since we treated him for BPPV effectively. 4+/5 strength LE. Overall significantly better and doing well, willing to cotninue via HEP. Goal 1:: Pt I in appropriate strength adn balance ex via HEP Goal Progress: Goal Met Goal 2:: FGA to diminish fall risk. Goal Progress: Goal Met Goal 3:: Pt feel 50% stronger adn more confident in walking and abiilty to get around. Goal Progress: Goal Met Goal 4:: LEFS Goal Progress: near met. 44 Plan: d/c If there are questions or concerns regarding this patient's physical therapy, please feel free to call me at [phone]. Thank you for the referral of this patient. Sincerely, Holland Rich, DPT, OCS, CSCS
== END 2020-09-14 19:00 | disposition home or self-care (01) ==
LOC: OT 11:00
PROVIDERS: PCP Family Medicine; Referring Provider Family Medicine; Visit Provider Family Medicine
DX: S06.9X9D Unspecified intracranial injury with loss of consciousness of unspecified duration, subsequent encounter (principal)
CPT/HCPCS: 92507; 92523; 97110; 97163; 97164; 97166; 97530